=== PATIENT | female | born 1950 | race Caucasian/White ===

== ENCOUNTER 2016-09-12 09:26 | Observation (INO) | payer BC ==
[2016-09-12 10:37] LABS: Hematocrit 16 % (35-47); Mean Corpuscular HGB Conc 33 g/dl (31-36); Mean Corpuscular Hemoglobin 34 pg (27-31); Mean Corpuscular Volume 101 fL (80-97); Mean Platelet Volume 8 um3 (7.4-10.4); Red Blood Count 1.61 10^6/ul (4.0-5.4); Red Cell Distribution Width 24 % (10.5-15); White Blood Count 4.7 10^3/ul (3.5-10.8)
[2016-09-12 10:38] LABS: Comments Flag Yes
--- NOTE | 2016-09-12 10:39 | RAD ---
HISTORY: Shortness of breath, history of left pleural effusion COMPARISONS: August 30, 2016 VIEWS: 2: Frontal dual-energy and lateral views of the chest. FINDINGS: CARDIOMEDIASTINAL SILHOUETTE: The cardiomediastinal silhouette is normal. JENNIFER: The jennifer are normal. PLEURA: The costophrenic angles are sharp. No pleural abnormalities are noted. LUNG PARENCHYMA: There is large left pleural effusion. This is stable compared to August 30, 2016 ABDOMEN: There is associated compressive atelectasis of the left lung base BONES AND SOFT TISSUES: No bone or soft tissue abnormalities are noted. Surgical clips are noted in the left axilla OTHER: None. IMPRESSION: LEFT PLEURAL EFFUSION, STABLE FROM AUGUST 30, 2016
[2016-09-12 10:42] LABS: Add Diff/Slide Review? Slide Review Added; Hemoglobin 5.4 g/dl (12.0-16.0)
[2016-09-12 10:49] LABS: BUN/Creatinine Ratio 18.1 (8-20); C Reactive Protein 50.51 mg/L (< 5.00); Calcium 8.6 mg/dL (8.6-10.3); EGFR African American 104.9 (>60); EGFR Non-African American 81.6 (>60); Globulin 2.8 g/dL (2-4); Potassium 4.1 mmol/L (3.5-5.0); Total Bilirubin 0.9 mg/dL (0.2-1.0); Total Protein 5.8 g/dL (6.4-8.9)
[2016-09-12 10:51] LABS: Troponin I 0.01 ng/mL (<0.04)
[2016-09-12 11:00] LABS: Macrocytosis 1+; Microcytosis 1+
[2016-09-12 11:01] LABS: Hypochromasia 1+; Tear Drop Cells 1+
[2016-09-12] MEDS ORDERED: Acetaminophen TAB* 325 MG PO ONE (12:14)
[2016-09-12] MEDS ORDERED: diPHENhydraMINE PO* 25 MG PO ONE (12:14)
[2016-09-12] MEDS ORDERED: Acetaminophen TAB* 325 MG PO PRN (12:56)
[2016-09-12] MEDS ORDERED: Ondansetron INJ* 2 MG/ML VIAL IV PRN (12:56)
[2016-09-12] MEDS: SALMETEROL INH SCH ×2 (15:27→21:28)
[2016-09-12 16:41] LABS: Urine Bilirubin Negative (Negative); Urine Glucose Negative (Negative); Urine Nitrite Negative (Negative)
[2016-09-12 18:02] LABS: Hematocrit 25 % (35-47); Hemoglobin 8.3 g/dl (12.0-16.0)
[2016-09-12 18:23] LABS: Comments Flag Yes
--- NOTE | 2016-09-12 18:34 | ED ---
Sheri Quijano Auryana, scribed for Ha Watkins MD on 09/12/16 at 1003 . Shortness of Breath - HPI Summary HPI Summary: 66 year old female presents with increase SOB and fatigue worse since a week ago. She also reports epistaxis (1 episode a week ago), swelling of the left arm, and chest tightness - reports "band of pain" underneath bilateral breasts. She denies any fever, chills, and cough (reports cough with exertion but none now). She denies any neck pain, abdominal pain, diarrhea, or any constipation. PMHx is significant for metastatic breast cancer (Dr. Dinh - last chemotherapy treatment was 2 weeks ago with decreased dosage ad 2 units blood transfusion due to platelet count), anemia, pleural effusion - thoracocentesis ( 2.5 weeks ago). - History of Current Complaint Chief Complaint: EDShortnessOfBreath Time Seen by Provider: 09/12/16 09:50 Hx Obtained From: Patient Onset/Duration: Gradual Onset, Lasting Days - 7, Still Present Timing: Constant Current Severity: Mild Dyspnea At: Rest Associated Signs & Symptoms: Cough (Productive) - see HPI, Chest Pain Unrelated to Cough - chest tightness - see HPI, Edema - LUE - Allergy/Home Medications Allergies/Adverse Reactions: Allergies Allergy/AdvReac Type Severity Reaction Status Date / Time Capecitabine [From Xeloda] Allergy Intermediate SEE BELOW Verified 09/12/16 09: 31 Potassium Dichromate Allergy Intermediate Rash Verified 09/12/16 09:31 Alcohol [From Taxotere] Allergy Anaphylatic Verified 09/12/16 09:31 Shock Camphor [From BenGay Patch] Allergy See Comment Verified 09/12/16 09:31 Carboxymethylcellulose Allergy See Comment Verified 09/12/16 09:31 [From BenGay Patch] Docetaxel [From Taxotere] Allergy Anaphylatic Verified 09/12/16 09:31 Shock Ethanol [From Taxotere] Allergy Anaphylatic Verified 09/12/16 09:31 Shock Fluorouracil Allergy See Comment Verified 09/12/16 09:31 Menthol [From BenGay Patch] Allergy See Comment Verified 09/12/16 09:31 Methyl Salicylate Allergy See Comment Verified 09/12/16 09:31 [From BenGay Patch] Nickel Allergy Rash Verified 09/12/16 09:31 Sorbitan [From Taxotere] Allergy Anaphylatic Verified 09/12/16 09:31 Shock ezio perez Allergy Intermediate Rash Uncoded 09/12/16 09:31 sunscreen Allergy Intermediate Rash Uncoded 09/12/16 09:31 surgical tape Allergy Intermediate Rash/burn Uncoded 09/12/16 09:31 deoderant Allergy Mild Rash Uncoded 09/12/16 09:31 shoe dye Allergy Mild Rash Uncoded 09/12/16 09:31 yew bushes Allergy anaphylacti Uncoded 09/12/16 09:31 c PMH/Surg Hx/FS Hx/Imm Hx Endocrine/Hematology History: Reports: Hx Blood Disorders, Hx Diabetes - NO MEDS : TYPE 2, Hx Anemia - 05/28/2013 Denies: Hx Systemic Lupus Erythematosus Cardiovascular History: Reports: Hx Hypercholesterolemia Denies: Hx Congestive Heart Failure, Hx Hypertension, Hx Pacemaker/ICD Respiratory History: Reports: Hx Asthma - PT STATES ASTHMATIC RESPONSE TO RECENT CHEMO TREATMENT History: Denies: Hx Renal Disease Musculoskeletal History: Reports: Hx Arthritis - bilateral knees, Other Musculoskeletal History - ,HAD HIP REPLACED. MET. BREAST CA. Denies: Hx Rheumatoid Arthritis Sensory History: Reports: Hx Contacts or Glasses - GLASSES Denies: Hx Hearing Aid Opthamlomology History: Reports: Hx Contacts or Glasses - GLASSES Psychiatric History: Denies: Hx Panic Disorder - Cancer History Cancer Type, Location and Year: breast ca with bone mets Hx Chemotherapy: Yes - 11-14-15 Hx Radiation Therapy: Yes Hx Palliative Cancer Treatment: No - Surgical History Surgery Procedure, Year, and Place: WISDOM TEETH REMOVAL,1984 & 1986 X2,[facility] [place] TUBAL,LEFT MASTECTOMY 1998,LAPAROSCOPIC GALLBLADDER 2001;[facility] [place] HIP REPLACEMENT RIGHT 07/2012, [facility] SIDE PORT PLACEMENT 04/2014, right sided port placement 06/29 removed 05/02 Hx Anesthesia Reactions: Yes - EPIDURALS DOES NOT WORK Infectious Disease History: No Infectious Disease History: Denies: Traveled Outside the [place] in Last 30 Days - Family History Known Family History: Positive: Diabetes, Other - BREAST CA - Social History Occupation: Employed Full-time Lives: With Family Alcohol Use: None Substance Use Type: Reports: None Smoking Status (MU): Never Smoked Tobacco Review of Systems Constitutional: Negative Eyes: Negative Positive: Epistaxis - 1 episode 1 week ago Positive: Other - chest tightness - "band underneath breast" Positive: Shortness Of Breath, Cough - with exertion Gastrointestinal: Negative Genitourinary: Negative Musculoskeletal: Negative Skin: Negative Neurological: Negative Psychological: Normal All Other Systems Reviewed And Are Negative: Yes Physical Exam - Summary Physical Exam Summary: VITAL SIGNS: Reviewed. GENERAL: Patient is a well-developed and nourished female who is lying comfortable in the stretcher. Patient is not in any acute respiratory distress and is able to speak in full sentences. HEAD AND FACE: No signs of trauma. No ecchymosis, hematomas or skull depressions. No sinus tenderness. EYES: PERRLA, EOMI x 2, No injected conjunctiva, no nystagmus. EARS: Hearing grossly intact. Ear canals and tympanic membranes are within normal limits. MOUTH: Oropharynx within normal limits. NECK: Supple, trachea is midline, no adenopathy, no JVD, no carotid bruit, no c- spine tenderness, neck with full ROM. CHEST: Symmetric, no tenderness at palpation. Left mastectomy. LUNGS: Bilateral crackles in the bases. CVS: Regular rate and rhythm, S1 and S2 present, no murmurs or gallops appreciated. ABDOMEN: Soft, non-tender. No signs of distention. No rebound no guarding, and no masses palpated. Bowel sounds are normal. EXTREMITIES: FROM in all major joints, no cyanosis or clubbing. LUE swelling. NEURO: Alert and oriented x 3. No acute neurological deficits. Speech is normal and follows commands. SKIN: Dry and warm Triage Information Reviewed: Yes Vital Signs On Initial Exam: Initial Vitals Temp Pulse Resp BP Pulse Ox 98.1 F 106 18 128/59 97 09/12/16 09:29 09/12/16 09:29 09/12/16 09:29 09/12/16 09:29 09/12/16 09:29 Vital Signs Reviewed: Yes Diagnostics - Vital Signs Vital Signs Temp Pulse Resp BP Pulse Ox 09/12/16 09:29 98.1 F 106 18 128/59 97 - Laboratory Result Diagrams: 09/12/16 17:45 09/12/16 10:20 Lab Statement: Any lab studies that have been ordered have been reviewed, and results considered in the medical decision making process. - Radiology CXR Xray Interpretation: Positive (See Comments) - IMPRESSION: LEFT PLEURAL EFFUSION , STABLE FROM AUGUST 30, 2016 Radiology Interpretation Completed By: Radiologist - EKG 09:39 EKG Interpretation: sinus tachycardia @ [address] elevations Course/Dx - Course Course Of Treatment: 66 year old female presents with increase SOB and fatigue worse since a week ago. She also reports epistaxis (1 episode a week ago), swelling of the left arm, and chest tightness - reports "band of pain" underneath bilateral breasts. She denies any fever, chills, and cough (reports cough with exertion but none now). She denies any neck pain, abdominal pain, diarrhea, or any constipation. PMHx is significant for metastatic breast cancer (Dr. Dinh - last chemotherapy treatment was 2 weeks ago with decreased dosage ad 2 units blood transfusion due to platelet count), anemia, pleural effusion - thoracocentesis (2.5 weeks ago). Assessment/Plan: Test results show acute on chronic anemia, glucose 124, and CRP 50.51. CXR IMPRESSION: LEFT PLEURAL EFFUSION, STABLE FROM AUGUST 30, 2016. EKG: sinus tachycardia @ [address] elevations. Patient has history of anemia secondary to her breast cancer and chemo treatment. The patient denies any rectal bleed and no black stools. Therefore I ordered 2 units of RBC. The patient is still hemodynamically stable and A&O x3. I discussed the case with Dr. Gilmore who agrees to admit patient. Dx: SYMPTOMATIC ANEMIA, PLEURAL EFFUSION - Diagnoses Differential Diagnosis/HQI/PQRI: Positive: Bronchitis, CHF, Pneumonia Provider Diagnoses: Symptomatic anemia, Pleural effusion - Physician Notifications Discussed Care of Patient With: EVELYN LOPEZ Time Discussed With Above Provider: 10:47 - agrees to admit - Critical Care Time Critical Care Time: 30-74 min Discharge - Discharge Plan Condition: Stable Disposition: ADMITTED TO [facility] documentation as recorded by the Sheri burgos Auryana accurately reflects the service I personally performed and the decisions made by , aH Watkins MD.
--- NOTE | 2016-09-13 03:13 | HP ---
HISTORY AND PHYSICAL: DATE OF ADMISSION: 09/12/16 PRIMARY CARE PROVIDER: Srinivasa Espinoza MD PRIMARY ONCOLOGIST: Jesse Dinh MD ATTENDING PHYSICIAN WHILE IN THE HOSPITAL: Leslie Gilmore DO* (report being dictated by Naresh Porter NP) CHIEF COMPLAINT: 1. Shortness of breath. 2. Weakness. HISTORY OF PRESENT ILLNESS: Mrs. Black is a 66-year-old female patient who comes into the ER today with complaints stating that she has been feeling more short of breath and weakness particularly in the last couple of days. She has a history of malignant breast cancer with a history of metastases. She has been following closely with Dr. Dinh. She saw him last week. She had 2 thoracenteses here in August. The patient says that she got chemo about a week ago , but despite that the last couple of days more weak and more short of breath. She has not been feeling well. She denied any bleeding. She did have just 1 bloody nose, but no tarry stools. No vomiting or abdominal discomfort. She denied any chest pain. She has been feeling weak. She came into the ER, was evaluated, and it was noted that her hemoglobin was 5.4 and her hematocrit was 16. The patient, because of these findings and the fact that also was noted on her chest x-ray that the pleural effusion was much larger. Hospitalist service was asked to evaluate for admission. PAST MEDICAL HISTORY: Significant for: 1. Breast cancer with malignancy. 2. Asthma. 3. Diabetes, which is diet controlled. 4. Hyperlipidemia. 5. Neuropathy. 6. Lymphedema. PAST SURGICAL HISTORY: 1. She has had a port placement. She has had a mastectomy. She has had a C- section x2. 2. Laparoscopic cholecystectomy. 3. Total hip arthroplasty. HOME MEDICATIONS: According to her recall includes: 1. Lipoic acid 600 mg p.o. t.i.d. 2. Serevent 1 puff inhaled b.i.d. as needed. 3. Fish oil 1 capsule p.o. daily. 4. Synthroid 100 mcg daily. ALLERGIES TO MEDICATIONS: Include: 1. XELODA. 2. TAXOTERE. 3. BENGAY. 4. 5-FU. 5. NICKEL. 6. SUNSCREEN. 7. SURGICAL TAPE. 8. DEODORANT. 9. SHOE DYE. 10. YEW BUSHES. FAMILY HISTORY: Her mother had a history of diabetes. Father had a history of MVA. SOCIAL HISTORY: She does not smoke. She does not drink. Surrogate decision maker is her . REVIEW OF SYSTEMS: There is no documented fever. She denied having any significant weight change. There was no double vision. Denies having any ear discharge. There is no rhinorrhea. No sore throat. No thyroid enlargement. Denies having any chest pain. There was orthopnea. There was no nocturnal dyspnea. There was no abdominal pain. There was no nausea. No vomiting. No dysuria. No frequency. There was no seizure. There was no loss of consciousness. No pruritus. No skin ulceration. Review of 14 systems completed and all others negative. PHYSICAL EXAMINATION GENERAL: At this time, Mrs. Black is a 66-year-old female patient. She appears to be well nourished, well developed. She does not appear to be in any acute distress. VITAL SIGNS: Reveals blood pressure 117/55, the pulse is 96, respirations 18, O2 sat 93%, and her temperature was 98.1. HEENT: Head is atraumatic and normocephalic. Eyes: EOMs are intact. Sclerae anicteric and not pale. NECK: Supple. Throat: Oral mucosa appears to be moist. No oropharyngeal erythema. LUNGS: Clear to auscultation. No wheezes, rales, or rhonchi. She is diminished on the left side. HEART: Sounds S1 and S2. Regular rate and rhythm. No murmurs, rubs, or gallops. ABDOMEN: Soft, flat, and nontender. Bowel sounds present. EXTREMITIES: Pulses were 2+ throughout. She is able to move all 4 extremities with 5/5 strength. NEUROLOGIC: She is awake, alert, and oriented x3. Tongue midline. Computer Technology Trainer were equal. No gross focal deficits. SKIN: Grossly intact. DIAGNOSTIC STUDIES/LAB DATA: Today revealed a WBC of 4.7, RBC of 1.61, hemoglobin of 5.4, hematocrit of 16, and platelet count of 89. Sodium is 135, potassium 4.1, chloride of 101, bicarb 25, BUN 13, creatinine 0.72, glucose 124 , lactic 1.8, and calcium 8.6. Total bili 0.9, AST 60, ALT 24, and alk phos 421. CK 1.6. Troponin 0.01. CRP of 50. Albumin of 3.0. She did have a chest x-ray obtained today, which on my review; she did have a significant left-sided pleural effusion, which was consistent with her x-ray in May 2014. She did have an EKG obtained today. She did not have any previous EKGs for comparison, but the EKG today did show a sinus tachycardia at a rate of 100. No ST elevations or T-wave inversions were noted. She may have some subtle depressions in lead II and III. Old medical records were reviewed. ASSESSMENT AND PLAN: Mrs. Black is a 66-year-old female patient coming into the ER today with complaints of weakness and shortness of breath, not feeling well, and found to have a hemoglobin of 5.4 and found to have a left-sided pleural effusion which is chronic. She will be admitted under observation status for: 1. Symptomatic anemia: At this point, I will go ahead and give her 2 units of packed cells. We will repeat the H and H an hour afterwards and if we need to, we will transfuse another one. In addition to this, we will go ahead and check a CBC in the morning and suspect this is probably suppression from the recent chemo. 2. Pleural effusion: I did touch pace with Dr. Erazo who again knows the patient and she is an oncology patient. The plan will be to go ahead and consult Surgery for maybe a pleural catheter because she is requiring and this will be her third need for thoracentesis within a month, so she might need a more permanent situation to drain this effusion. 3. Breast cancer: I will defer the management to Dr. Dinh and his team. 4. Asthma: Continue meds as prescribed. 5. Diabetes: She will be on a regular diet and we will just check her fingersticks daily. 6. Hyperlipidemia: Continue with her current medical regimen. 7. Neuropathy: Continue the current medical regimen. 8. Code status: Full code. 9. Fluids, electrolytes, and nutrition: She can have a regular diet. 10. DVTs prophylaxis. Because of the low H and H and the fact that her platelets were 89,000, I am going to hold off on heparin for the first 24 hours and go ahead and put her on SCDs. TIME SPENT: Time spent on the admission was 60 minutes; greater than half the time was spent [id number] with the patient obtaining my history and physical, the other half time is spent going over the plan of care with the patient and implementing plan of care. I discussed the plan of care with my attending, Dr. Gilmore. She is in agreement. NARESH PORTER NP CC: Dr. Dinh; Dr. Espinoza* [id number]/[facility]PS #: [id number] MTDD
[2016-09-13] MEDS ORDERED: Levothyroxine TAB* 100 MCG TAB PO SCH (06:00)
[2016-09-13 06:33] LABS: Hematocrit 23 % (35-47); Hemoglobin 7.9 g/dl (12.0-16.0); Mean Corpuscular HGB Conc 34 g/dl (31-36); Mean Corpuscular Hemoglobin 31 pg (27-31); Mean Corpuscular Volume 93 fL (80-97); Mean Platelet Volume 8 um3 (7.4-10.4); Red Blood Count 2.51 10^6/ul (4.0-5.4); Red Cell Distribution Width 23 % (10.5-15); White Blood Count 4.5 10^3/ul (3.5-10.8)
[2016-09-13 06:37] LABS: Comments Flag Yes
[2016-09-13 06:38] LABS: Add Diff/Slide Review? Slide Review Added
[2016-09-13 06:43] LABS: BUN/Creatinine Ratio 17.3 (8-20); Calcium 8.3 mg/dL (8.6-10.3); EGFR African American 100.1 (>60); EGFR Non-African American 77.8 (>60); Potassium 4.1 mmol/L (3.5-5.0)
[2016-09-13 07:04] LABS: Immature Granulocytes 9 % (0-9); Metamyelocytes % 1 % (0-2); Myelocytes % 1 % (0-1); Neutrophil % 65 % (38-83)
[2016-09-13 07:05] LABS: Hypochromasia 2+; Polychromasia 1+
[2016-09-13 07:06] LABS: Add Path Review? YES
[2016-09-13 07:35] VITALS: BP 125/65
[2016-09-13] MEDS: SALMETEROL INH SCH (09:06)
--- NOTE | 2016-09-13 10:13 | PN ---
Progress Note - Progress Note SOAP: Subjective: []Feels better today after blood. Still SOB with any movement. Had felt better when fluid drained a few weeks ago. No fevers and not in pain. Chemotherapy planned for this Tuesday. Acetaminophen (Tylenol Tab*) 650 mg PO Q4H PRN PRN Reason: FEVER/PAIN Heparin Sodium (Porcine) (Heparin Flush Port (Ivad)) 5 ml FLUSH DAILY KAUR PRN Reason: Protocol Last Admin: 09/13/16 07:51 Dose: Not Given Heparin Sodium (Porcine) (Heparin Flush Port (Ivad)) 5 ml FLUSH DAILY PRN; Protocol PRN Reason: PER INFUSAPORT PROTOCOL Last Admin: 09/13/16 06:02 Dose: 5 ml Levothyroxine Sodium (Synthroid Tab*) 100 mcg PO 0600 [facility] Last Admin: 09/13/16 05:57 Dose: 100 mcg Ondansetron HCl (Zofran Inj*) 4 mg IV Q6H PRN PRN Reason: NAUSEA Salmeterol Xinafoate (Serevent Diskus (Nf)) 1 puff INH BID KAUR PRN Reason: Protocol Last Admin: 09/13/16 09:06 Dose: 1 puff Objective: [] Vital Signs Temp Pulse Resp BP Pulse Ox 98.1 F 94 17 125/65 97 09/13/16 07:30 09/13/16 07:30 09/13/16 07:30 09/13/16 07:30 09/13/16 07:30 HEENT - pale, no oral lesions Decreased BS on left, CTA on right RRR S1S2 +BS, NT/ND, no masses No JOSÉ MIGUEL, ext warm to touch Neuro AAAOx3 Assessment: []66 year old metastatic breast cancer now approaching cycle 3 of Carbo, trastuzumab and pertuzumab with recurrent pleural effusion and anemia. Breathing better but not great after blood transfusion. Plan: []1. Discussed management of fluid at length. Options are recurrent drainage or Pleurex catheter. Given nature of recurrent fluid near cycle 3 of current regimen, I suspect it will be recurrent issue. She is due for CT scans after cycle 3 and is inclined to continue US guided drainage pending those scan results. Will plan on DC today and arrange for repeat drainage later this week. 2. Anemia. Improved past PRBC. 3. Plan chemotherapy on Tuesday
--- NOTE | 2016-09-13 10:29 | CONS ---
CC: [facility]; Jesse Dinh MD. CONSULTATION REPORT: DATE OF CONSULTATION: 09/13/16. REFERRING PROVIDER: Leslie Gilmore DO. REASON FOR CONSULTATION: Recurrent left malignant pleural effusion. HISTORY OF PRESENT ILLNESS: Ms. Michelle Black is a 66-year-old woman with known metastatic left-sided b reast cancer who is under the care of Dr. Jesse Dinh. She has been undergoing treatment for the l ast several years; we have decided to change in her chemotherapy regimen, which she receives through a left chest wall PowerPort. Over the past 2 months she has had development of a left pleural effusion. This has undergone 3 sep arate thoracenteses with Dr. Barahona. Cytology has shown this to be consistent with a primary breast cancer with metastatic adenocarcinoma consistent with her diagnosis. She has also had some difficulty with anemia and has received blood transfusion in the recent past. She presented to the Emergency Room yesterday with worsening chest pain and weakness. She has noted to have a hemoglobin of a little over 5 and also a chest x-ray, which showed the large left pleura l effusion, which is about the same size as the last chest x-ray done in mid August. She was admitted for blood transfusion, which she received yesterday and a surgical consultation for discussion and an opinion regarding placement of possible PleurX catheter. PAST MEDICAL HISTORY: 1. Metastatic breast cancer. 2. Asthma. 3. Diabetes. 4. Hyperlipidemia. 5. Neuropathy. 6. Lymphedema. PAST SURGICAL HISTORY: 1. Left-sided chest port placement. 2. Left mastectomy. 3. section. 4. Cholecystectomy. 5. Hip arthroplasty. MEDICATIONS: 1. Serevent 1 puff b.i.d. 2. Fish oil. 3. Synthroid. 4. Lipoic acid. ALLERGIES: XELODA, TAXOTERE, BENGAY, 5-FU, NICKEL, SUNSCREEN, TAPE, DEODORANT, SHOE DYE, YEW BUSHES . SOCIAL HISTORY: She does not smoke. She is . Does not drink. She has 2 grown children. H er surrogate decision maker is her . She lives in [place]. REVIEW OF SYSTEMS: Otherwise unremarkable. She has had no significant weight loss. There has been no chest pain. She does have some shortness of breath on exertion, but she has had no hemoptysis. GI: Unremarkable. : Unremarkable. PHYSICAL EXAMINATION: Vital Signs: Temperature 98.1, pulse 94, blood pressure 125/65, respirations 17, room air saturation is 97%. General: She is well- developed slightly pale-appearing woman, ap pears to be in no apparent distress. She is awake, alert, and very pleasant. She has a left-sided c hest port placement. She has decreased breath sounds on the left mid and lower base area. There is no rhonchi or wheezing. The right chest is clear. Heart has regular rate and rhythm. Her abdomen i s soft, nondistended. No tenderness, rebound or guarding. IMAGING DATA: I did review the chest x-rays from the past several months. She seems to have a pers istent but stable left pleural effusion compared to the study done in mid August when there also was a thoracentesis done. IMPRESSION: Recurrent metastatic left pleural effusion. She has been having increasing difficulty with shortness of breath and weakness and this is due to both the anemia as well as the effusion. S he feels better after blood transfusions. RECOMMENDATION: We discussed option of PleurX catheter, which certainly could be inserted during is admission or at any other time, which is convenient and appropriate for her. We discussed the pl acement of a catheter and its benefits and alternatives and the fact that she could continue as well with serial thoracenteses as well. Today before proceeding in this direction she would like to talk with Dr. Dinh her oncologist, Dr. Erazo. I also discussed with Dr. Erazo today who is an precision instrument maker for oncology, and obviously this is no t an emergent procedure and could be done anytime after she makes her decision. [id number]/[facility] #: [id number]
--- NOTE | 2016-09-13 14:45 | DS ---
CC: Jesse Dinh MD DISCHARGE SUMMARY: ADDENDUM: History and physical, discharge OBV. DIAGNOSES: 1. Chemotherapy-induced anemia. 2. Pleural effusion secondary to breast cancer. HOSPITAL COURSE: Please see history and physical from yesterday for admission. She came in [facility] and received 2 units of packed red blood cells. She feels better this morning and breathing is ac ceptable. She continues to have A left- sided effusion. Extensive discussion today about drainage of the fluid, placement of a PleurX catheter. She has chemotherapy due on Tuesday and will probably have an ultrasound-guided drainage later this week. Would consider PleurX pending results of CT sca ns after next cycle of chemotherapy. Plan will be to discharge home today and then follow up with Shaheen Dinh during the week. DISCHARGE MEDICATIONS: Unchanged from admission: 1. Levothyroxine 100 mcg daily. 2. Salmeterol Diskus 1 puff b.i.d. 3. [place]-3 fatty acids daily. FOLLOWUP: Followup will be next week with Dr. Dinh and we will make definitive plans for managing the effusion. [id number]/[facility] #: [id number]
== END 2016-09-13 12:00 | disposition home or self-care (01) ==
LOC: ED 09:26 → SSU 12:54
PROVIDERS: ADMIT Hospitalist; ATTEND Internal Medicine Hematology & Oncology
DX: D64.81 Anemia due to antineoplastic chemotherapy (principal); R06.02 Shortness of breath; R53.1 Weakness; C50.919 Malignant neoplasm of unspecified site of unspecified female breast; C79.9 Secondary malignant neoplasm of unspecified site; J45.909 Unspecified asthma, uncomplicated; E11.9 Type 2 diabetes mellitus without complications; E78.5 Hyperlipidemia, unspecified; G62.9 Polyneuropathy, unspecified; I89.0 Lymphedema, not elsewhere classified; R00.0 Tachycardia, unspecified; J90 Pleural effusion, not elsewhere classified; Z79.899 Other long term (current) drug therapy; Z88.8 Allergy status to other drugs, medicaments and biological substances
CPT/HCPCS: 36415; 71020; 80048; 80053; 81003; 82550; 82553; 83605; 83880; 84484; 85014; 85018; 85025; 85060; 85610; 86140; 86850; 86900; 86901; 86922; 87040; 93005; 99217; 99291; A9270-GY; G0378; J1642; P9040

== ENCOUNTER 2016-09-30 08:54 | Inpatient (IN) | payer BC ==
[~2016-09-30 08:54] MED LIST: Buffered Lidocaine 0.9% SYRIN* 5 ML/SYR SYRINGE INTRADERM ONE; Buffered Lidocaine 0.9% SYRIN* 5 ML/SYR SYRINGE ONE; Dexamethasone TAB* 4 MG ONE; Dexamethasone TAB* 4 MG PO ONE; Famotidine IV* 10 MG/ML 2 ML (20 mg) IV ONE; Famotidine IV* 10 MG/ML 2 ML (20 mg) ONE; Morphine INJ* 2 MG/ML 1 ML SYRINGE IV PRN; PROCHLORPERAZINE INJ 5 MG/ML 2 ML VIAL IV PRN; Scopolamine 1.5 mg* PATCH ONE; Scopolamine 1.5 mg* PATCH TRANSDERM ONE; ceFAZolin 2 GM PREMIX(*) 2 GM/50 ML BAG IVPB ONE; fentaNYL* 50 MCG/ML 2 ML VIAL (100 MCG VIAL) IV PRN; oxyCODONE/Acetamin 5/325 MG* TAB PO PRN
[2016-09-30] MEDS ORDERED: KETAMINE HCL* 50 MG/ML 10 ML VIAL ONE (09:41)
[2016-09-30] MEDS ORDERED: Midazolam* 1 MG/ML 5 ML VIAL (5 MG) ONE (09:41)
[2016-09-30] MEDS ORDERED: Atracurium* 10 MG/ML 10 ML VIAL ONE (09:41)
[2016-09-30] MEDS ORDERED: fentaNYL* 50 MCG/ML 2 ML VIAL (100 MCG VIAL) ONE ×2 (09:41→12:04)
[2016-09-30] MEDS ORDERED: Bupivacaine 0.25% W/EPI* 50 ML VIAL ONE (10:46)
[2016-09-30] MEDS ORDERED: Ondansetron INJ* 2 MG/ML VIAL ONE (12:13)
[2016-09-30] MEDS ORDERED: Glycopyrrolate IV* 0.2 MG/ML 1 ML VIAL ONE (12:13)
[2016-09-30] MEDS ORDERED: Neostigmine Methylsulfate* 2 MG/2 ML SYRINGE ONE (12:13)
[2016-09-30] MEDS ORDERED: Phenylephrine INJ* 10 MG/ML 1 ML VIAL (10 MG) ONE (12:13)
[2016-09-30] MEDS ORDERED: Propofol* 10 MG/ML 20 ML BTL IV PUSH ONE (12:13)
[2016-09-30] MEDS ORDERED: PROCHLORPERAZINE INJ 5 MG/ML 2 ML VIAL ONE (12:13)
[2016-09-30] MEDS ORDERED: Lidocaine 2% PF * 5 ML VIAL ONE ×2 (12:13→14:06)
[2016-09-30] MEDS ORDERED: Morphine INJ* 10 MG/ML 1 ML SYRINGE ONE (13:12)
[2016-09-30] MEDS ORDERED: Ondansetron INJ* 2 MG/ML VIAL IV PRN (13:55)
[2016-09-30] MEDS ORDERED: oxyCODONE/Acetamin 5/325 MG* TAB PO PRN (13:55)
[2016-09-30] MEDS ORDERED: HYDROmorphone* 1 MG/ML 1 ML SYR IV PRN (13:55)
[2016-09-30 14:47] LABS: Hematocrit 26 % (35-47); Hemoglobin 8.5 g/dl (12.0-16.0); Mean Corpuscular HGB Conc 33 g/dl (31-36); Mean Corpuscular Hemoglobin 30 pg (27-31); Mean Corpuscular Volume 91 fL (80-97); Mean Platelet Volume 9 um3 (7.4-10.4); Red Blood Count 2.84 10^6/ul (4.0-5.4); Red Cell Distribution Width 15 % (10.5-15); White Blood Count 6.8 10^3/ul (3.5-10.8)
[2016-09-30 14:49] LABS: Add Diff/Slide Review? Slide Review Added; Comments Flag Yes
--- NOTE | 2016-09-30 15:04 | RAD ---
HISTORY: Postop COMPARISONS: September 23, 2016 VIEWS:1: Single frontal portable view of the chest at 2:37 PM FINDINGS: LINES AND TUBES: A left-sided chest port is noted from a left internal jugular approach with the tip overlying the cavoatrial junction. A left-sided chest tube is noted. CARDIOMEDIASTINAL SILHOUETTE: The cardiomediastinal silhouette is normal for portable technique. PLEURA: The costophrenic angles are sharp. No pleural abnormalities are noted. LUNG PARENCHYMA: There is confluent alveolar opacification throughout the left lung field. There is patchy alveolar opacification of the right midlung field.. ABDOMEN: The upper abdomen is clear. There is no subphrenic gas. BONES AND SOFT TISSUES: Surgical clips are noted in the left axilla IMPRESSION: 1. LINES AND TUBES ABOVE. 2. DIFFUSE LEFT LUNG CONSOLIDATION WITH PATCHY ATELECTASIS VERSUS CONSOLIDATION OF THE RIGHT MIDLUNG
[2016-09-30 15:12] LABS: Immature Granulocytes 10 % (0-9); Metamyelocytes % 2 % (0-2); Neutrophil % 85 % (38-83)
[2016-09-30 15:13] LABS: Hypochromasia 2+; Polychromasia 1+
[2016-09-30 15:14] LABS: Microcytosis 1+
[2016-09-30] MEDS ORDERED: Salmeterol DISKUS (NF) INH SCH (21:00)
[2016-09-30] MEDS: Docusate CAP* 100 MG PO SCH (21:42)
--- NOTE | 2016-09-30 23:47 | OP ---
CC: Jesse Dinh MD * DATE OF OPERATION: 09/30/16 - ROOM #333 DATE OF : 54 SURGEON: Que Pierson MD CARDIOVASCULAR RADIOLOGIC TECHNOLOGIST: Soila Wheat NP ANESTHESIOLOGIST: Dr. Eric. ANESTHESIA: General anesthetic, local infiltration by the surgeon. 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 OPERATIVE PROCEDURES: Left videothoracoscopy, evacuation of bloody pleural effusion, partial pleural decortication, and mechanical pleurodesis. DESCRIPTION OF PROCEDURE: The patient was supine on the operative table. After adequate general anesthetic, compression stockings, Conrado Hugger warmer, intravenous antibiotics, she was given a double lumen intubation and fiberoptic bronchoscopy was carried out and confirmed appropriate position of the endotracheal tube. She was placed then in the lateral decubitus position with everything appropriately padded and positioned and secured to the table. The left chest was entered in approximately the eight interspace laterally and there was a large quantity of bloody pleural fluid forthcoming upon inspection with the scope. There were multiple areas of clot and adhesions and some septations. These were broken down. Additional fluid was drained. The pleural surface seemed to be oozy and bloody a little bit on its own. The upper lobe does not seem to expand perfectly well and there was a peel on the surface. This was taken off and it was relatively thin. Some of the clot and peel on fibrinous material was sent as the specimen as was the pleural fluid. The raw surface of the longus also kind of oozing. Irrigation and suctioning was carried out and mechanical pleurodesis was carried out using a piece of Marlex . Ultimately, a 36-[place] chest tube was placed through the larger incision. The two 5 mm incisions are closed with 5-0 Vicryl. The larger incision uses 2- 0 Prolene to help close the incisions and secure the chest tube. The chest tube was hooked to the Pleur-evac, gauze dressings were placed. She was brought to Recovery in stable condition. The drain is 36-[place] chest tube. Sponge and instrument counts correct. Estimated blood loss was about 1000 mL in addition to about 2 L worth of pleural fluid. She did receive 3 units of packed cells during the OR and 2 L of saline. [id number]/[facility] #: [id number] [facility]
[2016-10-01] MEDS ORDERED: NS 0.9% 1000 ML* 1,000 ML IV ONE ×2 (03:45→07:35)
[2016-10-01] MEDS: Levothyroxine TAB* 100 MCG TAB PO SCH (05:54)
[2016-10-01 05:59] LABS: Hematocrit 21 % (35-47); Hemoglobin 7.1 g/dl (12.0-16.0); Mean Corpuscular HGB Conc 34 g/dl (31-36); Mean Corpuscular Hemoglobin 30 pg (27-31); Mean Corpuscular Volume 91 fL (80-97); Mean Platelet Volume 9 um3 (7.4-10.4); Red Blood Count 2.34 10^6/ul (4.0-5.4); Red Cell Distribution Width 15 % (10.5-15); White Blood Count 8.2 10^3/ul (3.5-10.8)
[2016-10-01 06:01] LABS: Add Diff/Slide Review? Slide Review Added; Comments Flag Yes
[2016-10-01 06:03] LABS: BUN/Creatinine Ratio 31.1 (8-20); Calcium 7.3 mg/dL (8.6-10.3); EGFR African American 69.4 (>60); EGFR Non-African American 53.9 (>60); Potassium 5.1 mmol/L (3.5-5.0)
--- NOTE | 2016-10-01 08:32 | RAD ---
INDICATION: Postoperative study, left-sided chest tube. COMPARISON: Comparison is made with prior studies from September 23, 2016 and September 30, 2016. TECHNIQUE: A portable view of the chest was obtained. FINDINGS: The heart is within normal limits in size. There is a central venous catheter present on the left side. The catheter tip projects in the right paratracheal region. There is a left-sided chest tube. There is a patchy infiltrate in the left lung which appears improved from the prior exam. There is suggestion of a small left pleural effusion which is decreased. No pneumothorax is seen. There is a small amount of subcutaneous emphysema. IMPRESSION: INTERVAL DECREASE IN SIZE OF THE LEFT LUNG INFILTRATE AND PLEURAL EFFUSION.
[2016-10-01] MEDS: Docusate CAP* 100 MG PO SCH ×2 (08:36→20:52)
[2016-10-01] MEDS: SALMETEROL INH SCH ×2 (08:36→20:52)
--- NOTE | 2016-10-01 12:03 | PN ---
Progress Note - Progress Note SOAP: Subjective: []Post Op Day 1, s/p VATs with mechanical pleurodesis, chest tube in place. Feeling OK. Was very anxious going into surgery but thinks it will be good, "actually feel better about it now then I did then!" No severe pain and breathing easily. Denies questions to this credit underwriter. Left arm swollen, long standing but worse over last 2 months per report. Medications: Acetaminophen (Tylenol Tab*) 650 mg PO Q4H PRN PRN Reason: Pain Or Temperature >101 F Docusate Sodium (Colace Cap*) 100 mg PO BID [facility] Last Admin: 10/01/16 08:36 Dose: 100 mg Hydromorphone HCl (Dilaudid Iv*) 0.5 mg IV Q1H PRN PRN Reason: PAIN - SEVERE Lactated Ringer's (Lactated Ringers 1000 Ml Bag*) 1,000 mls @ 150 mls/hr IV .per rate [facility] Last Admin: 09/30/16 23:38 Dose: 150 mls/hr Levothyroxine Sodium (Synthroid Tab*) 100 mcg PO 0600 [facility] Last Admin: 10/01/16 05:54 Dose: 100 mcg Ondansetron HCl (Zofran Inj*) 4 mg IV Q4H PRN PRN Reason: NAUSEA/VOMITING Oxycodone/Acetaminophen (Percocet 5/325 Tab*) 1 tab PO Q4H PRN PRN Reason: PAIN Pharmacy Profile Note (Scopolomine Patch Remove*) 1 note PATCH OFF ONCE ONE Stop: 10/03/16 06:01 Salmeterol Xinafoate (Serevent Diskus (Nf)) 1 puff INH BID [facility] PRN Reason: Protocol Last Admin: 10/01/16 08:36 Dose: 1 puff Objective: [] Vital Signs Temp Pulse Resp BP Pulse Ox 97.9 F 69 16 126/61 97 10/01/16 03:54 10/01/16 03:54 10/01/16 03:54 10/01/16 03:54 10/01/16 09:50 A&Ox3, neuro grossly non-focal HRR, no murmur noted LS R clear L dim. with faint crackles Barrera draining clear urine Chest tube benign, dressing in place, draining sanginous fluid, +air leak Laboratory Results - last 24 hr 09/30/16 10/01/16 10/01/16 14:36 05:24 05:24 WBC 6.8 8.2 RBC 2.84 L 2.34 L Hgb 8.5 L 7.1 L Hct 26 L 21 L MCV 91 91 MCH 30 30 MCHC 33 34 RDW 15 15 Plt Count 58 L 53 L MPV 9 9 Immature Gran % (Auto) 10 H Neut % (Auto) 85.9 H 85.0 H Lymph % (Auto) 7.8 L 4.7 L [place] % (Auto) 5.2 10.0 H Eos % (Auto) 0.4 0.1 Baso % (Auto) 0.7 0.2 Absolute Neuts (auto) 5.8 7.0 Absolute Lymphs (auto) 0.5 L 0.4 L Absolute Monos (auto) 0.4 0.8 Absolute Eos (auto) 0 0 Absolute Basos (auto) 0 0 Absolute Nucleated RBC 0.09 0.07 Neutrophils % 85 H Band Neutrophils % 8 Lymphocytes % 2 L Monocytes % 3 Metamyelocytes % 2 Nucleated RBC % 1.3 0.8 Nucleated RBCs/100 WBC 8 H Normal RBC Morphology Not Reportable Polychromasia 1+ Hypochromasia 2+ Microcytosis 1+ Sodium 131 L Potassium 5.1 H Chloride 101 Carbon Dioxide 21 L Anion Gap 9 BUN 32 H Creatinine 1.03 H Est GFR ( Amer) 69.4 Est GFR (Non-Af Amer) 53.9 BUN/Creatinine Ratio 31.1 H Glucose 175 H Calcium 7.3 L Assessment: []66 yo f with metastatic breast cancer now s/p VATs for malignant pleural effusion on Left, chest tube in place and overall appearing to recover well. Left arm swelling seems out of proportion to lymphedema, may be dependent r/t effusion, however with progressive component I would like to evaluate for a clot. Plan: []1. Venous doppler Left upper extremity: eval. for clot vs. lymphedema - discussed with surgery and no issues with chest tube. Plan of care otherwise per surgery, oncology will cont. to follow
[2016-10-01] MEDS ORDERED: Furosemide IV* 10 MG/ML 2 ML VIAL (20 MG) IV ONE (13:36)
--- NOTE | 2016-10-01 13:50 | PN ---
Progress Note - Progress Note Note: Surgery Progress: (patient seen and examined this a.m. by Dr. Pierson; I saw the patient around 0930) S: POD #1. Pain is manageable (has used any analgesics), though has not been very mobile as yet. Denies sig SOB. Reportedly had quite a bit of drainage to the dressing around the chest tube. Fluid bolus ordered for low UOP. O: Vital Signs - 8 hr 10/01/16 10/01/16 10/01/16 07:39 08:00 09:50 Temperature 98.3 F Pulse Rate 87 Respiratory 15 16 Rate Blood Pressure 104/62 (mmHg) O2 Sat by Pulse 100 100 97 Oximetry 10/01/16 11:43 Temperature 98.0 F Pulse Rate 90 Respiratory 17 Rate Blood Pressure 112/54 (mmHg) O2 Sat by Pulse 100 Oximetry Intake and Output Last 24 Hours 09/29/16 09/30/16 10/01/16 10/02/16 06:59 06:59 06:59 06:59 Intake Total 6239 Output Total 1515 Balance 4724 Weight 180 lb 180 lb Intake: IV Fluids 5509 BLOOD 960 LR 3554 NS (0.9%) 995 Oral 730 Output: Chest Tube #1 140 Barrera 375 Estimated Blood Loss 1000 Other: # Bowel Movements 0 Gen: NAD Heart: reg Lungs: clear on the R and upper higgins on L. CT: level at ~ 750cc; moderately sanguinous drain (serosang). Appears to be a small airleak at the pleurevac. RIVERA Noonan will change dressings and check connections. Labs: Laboratory Tests 09/30/16 10/01/16 10/01/16 14:36 05:24 05:24 Hgb 8.5 L 7.1 L Potassium 5.1 H A/P: s/p L VATS w/ decortication and mechanical pleuradesis, with significant intraop blood loss; overall, doing well. Labs to be rechecked in a.m. Patient understands she may need add'l transfusion. I also spoke w/ COMPUTER PROCESSING SCHEDULER Blanca who will be ordering a venous duplex of the Left UE r/t increased swelling. Continue chest tube drainage. Should be ok to be off suction for short periods. Poss d/c Barrera later today if able to mobilize.
--- NOTE | 2016-10-01 14:04 | RAD ---
Indication: Left upper extremity edema. Real-time sonography of the right upper extremity deep venous system was performed. Echogenic material is noted in the right internal jugular vein consistent with partial thrombus. This is in similar extent to that seen on December 01, 2015. The actual clot appears to be retracted relative to the prior exam. The left subclavian vein, right axillary vein and brachial vein are patent. The basilic vein, cephalic vein, radial vein and ulnar vein are patent and compressible. IMPRESSION: Nonocclusive thrombus involving the right internal jugular vein to a similar extent seen on previous exam of December 01, 2015 although the thrombus appears to be smaller. No evidence of deep venous thrombosis of left upper extremity is noted.
[2016-10-01] MEDS: NS 0.9% 1000 ML* 1,000 ML IV SCH (17:13)
[2016-10-01] MEDS ORDERED: NS 0.9% 1000 ML* 1,000 ML IV PRN (23:00)
[2016-10-02] MEDS: NS 0.9% 1000 ML* 1,000 ML IV SCH ×2 (02:24→23:45)
[2016-10-02] MEDS: Levothyroxine TAB* 100 MCG TAB PO SCH (05:31)
[2016-10-02 08:34] LABS: Hematocrit 17 % (35-47); Mean Corpuscular HGB Conc 34 g/dl (31-36); Mean Corpuscular Hemoglobin 31 pg (27-31); Mean Corpuscular Volume 91 fL (80-97); Mean Platelet Volume 9 um3 (7.4-10.4); Red Blood Count 1.84 10^6/ul (4.0-5.4); Red Cell Distribution Width 16 % (10.5-15)
[2016-10-02] MEDS: Docusate CAP* 100 MG PO SCH ×2 (08:45→21:16)
[2016-10-02 08:46] LABS: BUN/Creatinine Ratio 34.5 (8-20); Calcium 7.4 mg/dL (8.6-10.3); EGFR African American 87.8 (>60); EGFR Non-African American 68.3 (>60); Potassium 4.1 mmol/L (3.5-5.0)
[2016-10-02] MEDS: SALMETEROL INH SCH ×2 (08:46→21:16)
[2016-10-02 08:53] LABS: Comments Flag Yes
[2016-10-02 08:54] LABS: Hemoglobin 5.7 g/dl (12.0-16.0)
[2016-10-02 08:55] LABS: Add Diff/Slide Review? Slide Review Added
--- NOTE | 2016-10-02 09:31 | RAD ---
INDICATION: Postoperative chest x-ray status post left-sided pleurodesis. COMPARISON: Chest x-ray dated October 01, 2016 TECHNIQUE: PA and lateral views of the chest were obtained. FINDINGS: Stable iatrogenic findings relative to the most recent chest x-ray include a left internal jugular vein Mediport with the tip terminating in the cavoatrial junction and a left-sided chest tube overlying the lateral aspect of the left lung. There is persistent density obscuring the left lung base and left hemidiaphragm but aeration of the left lung appears to be slightly improved from the previous days chest x-ray. Aside from linear density at the mid-level right lateral lung, the right lung is adequately aerated. IMPRESSION: THERE HAS BEEN SMALL INTERVAL IMPROVEMENT IN THE DEGREE OF LEFT LUNG AERATION WITH AN APPROPRIATELY POSITIONED LEFT-SIDED CHEST TUBE DESCRIBED ABOVE.
[2016-10-02 10:04] LABS: Immature Granulocytes 9 % (0-9); Myelocytes % 1 % (0-1); Neutrophil % 78 % (38-83)
[2016-10-02 10:05] LABS: Polychromasia 1+
[2016-10-02] MEDS ORDERED: Furosemide IV* 10 MG/ML 2 ML VIAL (20 MG) IV ONE (15:50)
[2016-10-02] MEDS ORDERED: Furosemide IV* 10 MG/ML 2 ML VIAL (20 MG) ONE (16:05)
[2016-10-03 00:19] LABS: Mean Platelet Volume 8 um3 (7.4-10.4)
[2016-10-03 00:21] LABS: Comments Flag Yes
[2016-10-03] MEDS: Levothyroxine TAB* 100 MCG TAB PO SCH (05:47)
[2016-10-03] MEDS ORDERED: Furosemide IV* 10 MG/ML 2 ML VIAL (20 MG) IV ONE (06:00)
[2016-10-03] MEDS ORDERED: Scopolomine PATCH Remove* 1 NOTE MISC PATCH OFF ONE (06:00)
[2016-10-03 08:39] LABS: Hematocrit 28 % (35-47); Hemoglobin 9.5 g/dl (12.0-16.0); Mean Corpuscular HGB Conc 35 g/dl (31-36); Mean Corpuscular Hemoglobin 31 pg (27-31); Mean Corpuscular Volume 89 fL (80-97); Mean Platelet Volume 8 um3 (7.4-10.4); Red Blood Count 3.09 10^6/ul (4.0-5.4); Red Cell Distribution Width 15 % (10.5-15); White Blood Count 6.3 10^3/ul (3.5-10.8)
[2016-10-03 08:40] LABS: Comments Flag Yes
[2016-10-03 08:56] LABS: BUN/Creatinine Ratio 30.4 (8-20); Calcium 8.3 mg/dL (8.6-10.3); EGFR African American 110.2 (>60); EGFR Non-African American 85.7 (>60); Potassium 3.5 mmol/L (3.5-5.0)
--- NOTE | 2016-10-03 09:21 | RAD ---
INDICATION: Follow-up status post left-sided pleurodesis 3 days earlier in a woman with left-sided malignant effusion. COMPARISON: Most recent comparison chest x-rays dated October 02, 2016 TECHNIQUE: PA and lateral views of the chest were obtained. FINDINGS: Iatrogenic findings include a left internal jugular vein Mediport with the tip terminating at the cavoatrial junction and a left-sided chest tube positioned in the lateral aspect of the mid-level and left lower lung. Subcutaneous gas overlying the left flank at the chest tube insertion site is unchanged from the previous day. Again seen is a small amount of fluid in the minor fissure of the right. The right lung is otherwise adequately aerated. There is persistent density at the left lung base with density of securing the left hemidiaphragm and costophrenic angle. There is also a persistent small pneumothorax on the left that may be slightly smaller when compared to the previous day chest x-ray. IMPRESSION: OVERALL THERE IS BEEN NO SIGNIFICANT CHANGE IN APPEARANCE AND DEGREE OF AERATION OF THE LEFT LUNG RELATIVE TO THE PREVIOUS DAY CHEST X-RAY BUT AERATION REMAINS IMPROVED SINCE OCTOBER 01, 2016. THERE IS A PERSISTENT SMALL PNEUMOTHORAX IN THE LEFT, PERHAPS SLIGHTLY SMALLER WHEN COMPARED TO THE PREVIOUS DAYS CHEST X-RAY.
[2016-10-03] MEDS: Docusate CAP* 100 MG PO SCH ×2 (09:49→20:49)
[2016-10-03] MEDS: Acetaminophen TAB* 325 MG PO PRN (09:49)
[2016-10-03] MEDS: SALMETEROL INH SCH ×2 (09:50→20:49)
[2016-10-03] MEDS: NS 0.9% 1000 ML* 1,000 ML IV SCH (09:52)
[2016-10-03] MEDS ORDERED: Magnesium Hydroxide LIQ* 30 ML UDC PO ONE (11:11)
[2016-10-04] MEDS: Levothyroxine TAB* 100 MCG TAB PO SCH (06:11)
[2016-10-04 06:47] LABS: BUN/Creatinine Ratio 30.4 (8-20); Calcium 8.2 mg/dL (8.6-10.3); EGFR African American 140.2 (>60); Potassium 3.4 mmol/L (3.5-5.0)
--- NOTE | 2016-10-04 09:39 | RAD ---
Indication: Left-sided pleurodesis with left malignant effusion. 2 views of the chest were reviewed and compared to previous exam dated October 03, 2016. Left chest tube remains in place. Left pleural thickening and persistent infiltrates in the left upper lobe and left base persists. Right lung field is clear. Subcutaneous emphysema in the left lung base appears to be improved. IMPRESSION: Left chest tube remains in place. Pleural thickening remains unchanged from previous exam with infiltrates in the left upper lobe and left base.
[2016-10-04] MEDS: Docusate CAP* 100 MG PO SCH ×2 (10:07→21:33)
[2016-10-04] MEDS: SALMETEROL INH SCH ×2 (10:07→21:33)
[2016-10-04] MEDS: Acetaminophen TAB* 325 MG PO PRN ×2 (10:14→21:33)
[2016-10-04] MEDS: Potassium & Sodium Phos 250MG* = 1 PACKET PO SCH (21:33)
[2016-10-05] MEDS: Levothyroxine TAB* 100 MCG TAB PO SCH (05:50)
[2016-10-05 07:35] LABS: Hematocrit 25 % (35-47); Hemoglobin 8.5 g/dl (12.0-16.0); Mean Corpuscular HGB Conc 35 g/dl (31-36); Mean Corpuscular Hemoglobin 31 pg (27-31); Mean Corpuscular Volume 90 fL (80-97); Mean Platelet Volume 9 um3 (7.4-10.4); Red Blood Count 2.71 10^6/ul (4.0-5.4); Red Cell Distribution Width 16 % (10.5-15); White Blood Count 4.6 10^3/ul (3.5-10.8)
[2016-10-05 07:36] LABS: Add Diff/Slide Review? Slide Review Added; Comments Flag Yes
[2016-10-05 08:16] LABS: Eosinophils % 2 % (0-6); Hypochromasia 1+; Immature Granulocytes 19 % (0-9); Metamyelocytes % 2 % (0-2); Myelocytes % 3 % (0-1); Neutrophil % 66 % (38-83); Polychromasia 1+
[2016-10-05] MEDS: Potassium & Sodium Phos 250MG* = 1 PACKET PO SCH ×2 (09:49→21:54)
[2016-10-05] MEDS: Docusate CAP* 100 MG PO SCH ×2 (09:50→21:54)
[2016-10-05] MEDS: SALMETEROL INH SCH ×2 (09:50→21:54)
[2016-10-05 18:37] LABS: Comments Flag Yes; Mean Platelet Volume 8 um3 (7.4-10.4)
[2016-10-05] MEDS: Acetaminophen TAB* 325 MG PO PRN (21:57)
[2016-10-06] MEDS: Levothyroxine TAB* 100 MCG TAB PO SCH (06:07)
[2016-10-06 06:12] LABS: Comments Flag Yes; Hematocrit 23 % (35-47); Mean Corpuscular HGB Conc 34 g/dl (31-36); Mean Corpuscular Hemoglobin 31 pg (27-31); Mean Corpuscular Volume 90 fL (80-97); Mean Platelet Volume 9 um3 (7.4-10.4); Red Blood Count 2.61 10^6/ul (4.0-5.4); Red Cell Distribution Width 16 % (10.5-15); White Blood Count 4.7 10^3/ul (3.5-10.8)
[2016-10-06] MEDS ORDERED: Alteplase (CATHFLO)* 2 MG VIAL IV ONE (08:27)
[2016-10-06] MEDS: Potassium & Sodium Phos 250MG* = 1 PACKET PO SCH ×2 (08:42→20:38)
[2016-10-06] MEDS: Docusate CAP* 100 MG PO SCH ×2 (08:42→20:39)
[2016-10-06] MEDS: SALMETEROL INH SCH ×2 (08:59→20:37)
[2016-10-06] MEDS ORDERED: STERILE WATER FOR INJ IV PUSH ONE (09:00)
--- NOTE | 2016-10-06 10:22 | PN ---
Progress Note - Progress Note SOAP: Subjective: []Feeling OK, no worse then last couple days, but still very tired. Breathing better then prior to surgery. Ambulating to bathroom and had BM today. Pain well controlled. Denies questions for oncology, wonders about plan for tx. Medications: Acetaminophen (Tylenol Tab*) 650 mg PO Q4H PRN PRN Reason: Pain Or Temperature >101 F Last Admin: 10/05/16 21:57 Dose: 650 mg Docusate Sodium (Colace Cap*) 100 mg PO BID [facility] Last Admin: 10/06/16 08:42 Dose: 100 mg Heparin Sodium (Porcine) (Heparin Flush Port (Ivad)) 5 ml FLUSH DAILY [facility] PRN Reason: Protocol Hydromorphone HCl (Dilaudid Iv*) 0.5 mg IV Q1H PRN PRN Reason: PAIN - SEVERE Sodium Chloride (Ns 0.9% 1000 Ml*) 1,000 mls @ 75 mls/hr IV PER RATE [facility] Last Admin: 10/03/16 09:52 Dose: 75 mls/hr Sodium Chloride (Ns 0.9% 1000 Ml*) 1,000 mls @ 1,000 mls/hr IV ONCE PRN PRN Reason: IF UOP < 300ML OVER 8 HRS Levothyroxine Sodium (Synthroid Tab*) 100 mcg PO 0600 [facility] Last Admin: 10/06/16 06:07 Dose: 100 mcg Ondansetron HCl (Zofran Inj*) 4 mg IV Q4H PRN PRN Reason: NAUSEA/VOMITING Oxycodone/Acetaminophen (Percocet 5/325 Tab*) 1 tab PO Q4H PRN PRN Reason: PAIN Potassium Phos/Sodium Phos (Neutra Phos 250 Mg Reese*) 250 mg PO BID [facility] Last Admin: 10/06/16 08:42 Dose: 250 mg Salmeterol Xinafoate (Serevent Diskus (Nf)) 1 puff INH BID [facility] PRN Reason: Protocol Last Admin: 10/06/16 08:59 Dose: 1 puff Objective: [] Vital Signs Temp Pulse Resp BP Pulse Ox 97.9 F 92 15 120/62 96 10/06/16 07:36 10/06/16 07:36 10/06/16 07:36 10/06/16 07:36 10/06/16 03:26 A&Ox3, EOMI, BLUM HRR, S1S2, no murmur noted LS scatter crackles, left dim. Chest tube draining pena colored fluid +PP=bilat., +1 edema @ ankles Bilat. UE +1 edema, Left lymphedema LCW port benign Laboratory Results - last 24 hr 10/05/16 10/06/16 18:32 05:02 WBC 4.7 RBC 2.61 L Hgb 8.0 L Hct 23 L MCV 90 MCH 31 MCHC 34 RDW 16 H Plt Count 74 L 46 L MPV 8 9 Intake and Output Last 24 Hours 10/04/16 10/05/16 10/06/16 10/07/16 06:59 06:59 06:59 06:59 Intake Total 3193 1690 2425 Output Total 1595 2400 1630 100 Balance 1598 -710 795 -100 Intake: IV Fluids 1023 NS (0.9%) 1023 Oral 2170 1690 2425 Output: Chest Tube #1 345 400 230 Urine 1250 2000 1400 100 Other: Date of Last Bowel 10/05/16 Movement # Bowel Movements 1 0 Estimated Stool Amount Small Small Small Assessment: []66 yo with metastatic breast cancer s/p VATs for malignant pleural effusion now POD 6 with cont.'d bleeding in chest tube. Extensive bone mets with associated cytopenias likely representing bone marrow infiltration complicating ability to remove chest tube. Plan: []1. Transfuse 1 single donor pack platelets today. Hold off on blood today, but likely will need tomorrow (pt. very agreeable to this). 2. Recheck labs in AM 3. Tx. not due until 10/15 D/C per surgery
[2016-10-06 10:42] LABS: Body Fluid Appearance Bloody
[2016-10-06 10:56] LABS: Body Fluid Total Cells Counted 100
[2016-10-06 15:49] LABS: Mean Platelet Volume 8 um3 (7.4-10.4)
[2016-10-06 15:50] LABS: Comments Flag Yes
[2016-10-07] MEDS: Levothyroxine TAB* 100 MCG TAB PO SCH (05:43)
[2016-10-07 06:29] LABS: Albumin 2.1 g/dL (3.2-5.2); BUN/Creatinine Ratio 23.6 (8-20); Calcium 7.5 mg/dL (8.6-10.3); EGFR African American 143.1 (>60); EGFR Non-African American 111.3 (>60); Globulin 2.3 g/dL (2-4); Potassium 3.5 mmol/L (3.5-5.0); Total Bilirubin 1.1 mg/dL (0.2-1.0); Total Protein 4.4 g/dL (6.4-8.9)
[2016-10-07 07:02] LABS: Hematocrit 22 % (35-47); Hemoglobin 7.6 g/dl (12.0-16.0); Mean Corpuscular HGB Conc 34 g/dl (31-36); Mean Corpuscular Hemoglobin 31 pg (27-31); Mean Corpuscular Volume 92 fL (80-97); Mean Platelet Volume 9 um3 (7.4-10.4); Red Blood Count 2.41 10^6/ul (4.0-5.4); Red Cell Distribution Width 16 % (10.5-15)
[2016-10-07 07:14] LABS: Add Diff/Slide Review? Slide Review Added; Comments Flag Yes
[2016-10-07 08:25] LABS: Eosinophils % 1 % (0-6); Immature Granulocytes 10 % (0-9); Metamyelocytes % 4 % (0-2); Myelocytes % 2 % (0-1); Neutrophil % 66 % (38-83); Reactive Lymph % 1 % (0-6)
[2016-10-07 08:27] LABS: Polychromasia 1+
[2016-10-07] MEDS: Docusate CAP* 100 MG PO SCH ×2 (10:13→22:03)
[2016-10-07] MEDS: Potassium & Sodium Phos 250MG* = 1 PACKET PO SCH ×2 (10:14→22:03)
[2016-10-07] MEDS: Acetaminophen TAB* 325 MG PO PRN ×2 (10:14→22:09)
[2016-10-07] MEDS: SALMETEROL INH SCH ×2 (10:15→22:03)
--- NOTE | 2016-10-07 10:37 | PN ---
Progress Note - Progress Note SOAP: Subjective: []Feeling more fatigued today, "droopy...like my counts are low." Chest tube / c cont.'d sanginous drainage. No questions. Not sure she could manage a chest tube @ home. Very aware that healing complicated by underlying bone marrow disfunction. Medications: Acetaminophen (Tylenol Tab*) 650 mg PO Q4H PRN PRN Reason: Pain Or Temperature >101 F Last Admin: 10/07/16 10:14 Dose: 650 mg Docusate Sodium (Colace Cap*) 100 mg PO BID [facility] Last Admin: 10/07/16 10:13 Dose: 100 mg Heparin Sodium (Porcine) (Heparin Flush Port (Ivad)) 5 ml FLUSH DAILY [facility] PRN Reason: Protocol Last Admin: 10/06/16 16:24 Dose: 5 ml Hydromorphone HCl (Dilaudid Iv*) 0.5 mg IV Q1H PRN PRN Reason: PAIN - SEVERE Sodium Chloride (Ns 0.9% 1000 Ml*) 1,000 mls @ 75 mls/hr IV PER RATE [facility] Last Admin: 10/03/16 09:52 Dose: 75 mls/hr Sodium Chloride (Ns 0.9% 1000 Ml*) 1,000 mls @ 1,000 mls/hr IV ONCE PRN PRN Reason: IF UOP < 300ML OVER 8 HRS Levothyroxine Sodium (Synthroid Tab*) 100 mcg PO 0600 [facility] Last Admin: 10/07/16 05:43 Dose: 100 mcg Ondansetron HCl (Zofran Inj*) 4 mg IV Q4H PRN PRN Reason: NAUSEA/VOMITING Oxycodone/Acetaminophen (Percocet 5/325 Tab*) 1 tab PO Q4H PRN PRN Reason: PAIN Potassium Phos/Sodium Phos (Neutra Phos 250 Mg Reese*) 250 mg PO BID [facility] Last Admin: 10/07/16 10:14 Dose: 250 mg Salmeterol Xinafoate (Serevent Diskus (Nf)) 1 puff INH BID [facility] PRN Reason: Protocol Last Admin: 10/07/16 10:15 Dose: 1 puff Objective: [] Vital Signs Temp Pulse Resp BP Pulse Ox 98.0 F 95 18 123/57 97 10/07/16 03:35 10/07/16 03:35 10/07/16 08:00 10/07/16 03:35 10/07/16 03:35 A&Ox3, EOMI, BLUM, neuro grossly non-focal HRR, S1S2, no murmur noted LS R clear, L with crackles and dim. base, resp. even and mildly labored --left chest tube site benign Bilat. UE and LE edematous Laboratory Results - last 24 hr 10/06/16 10/06/16 10/06/16 10:05 10:15 15:30 WBC RBC Hgb Hct MCV MCH MCHC RDW Plt Count 62 L MPV 8 Immature Gran % (Auto) Neut % (Auto) Lymph % (Auto) [place] % (Auto) Eos % (Auto) Baso % (Auto) Absolute Neuts (auto) Absolute Lymphs (auto) Absolute Monos (auto) Absolute Eos (auto) Absolute Basos (auto) Absolute Nucleated RBC Neutrophils % Band Neutrophils % Lymphocytes % Reactive Lymphs % Monocytes % Eosinophils % Metamyelocytes % Myelocytes % Nucleated RBC % Nucleated RBCs/100 WBC Normal RBC Morphology Polychromasia Sodium Potassium Chloride Carbon Dioxide Anion Gap BUN Creatinine Est GFR ( Amer) Est GFR (Non-Af Amer) BUN/Creatinine Ratio Glucose Calcium Total Bilirubin AST ALT Alkaline Phosphatase Total Protein Albumin Globulin Albumin/Globulin Ratio Fluid Volume 10 Fluid Color Red Fluid Appearance Bloody Fluid WBC Fluid RBC Fluid Tot Cell Count 100 Fluid Neutrophils 98 Fluid Lymphocytes 2 Fluid Other Cells 8 Fluid Cell Count Rvw By Crossmatch See Detail 10/07/16 10/07/16 05:47 05:47 WBC 5.0 RBC 2.41 L Hgb 7.6 L Hct 22 L MCV 92 MCH 31 MCHC 34 RDW 16 H Plt Count 54 L MPV 9 Immature Gran % (Auto) 10 H Neut % (Auto) 80.2 Lymph % (Auto) 6.7 L [place] % (Auto) 11.9 H Eos % (Auto) 0.9 Baso % (Auto) 0.3 Absolute Neuts (auto) 4.0 Absolute Lymphs (auto) 0.3 L Absolute Monos (auto) 0.6 Absolute Eos (auto) 0 Absolute Basos (auto) 0 Absolute Nucleated RBC 0.08 Neutrophils % 66 Band Neutrophils % 4 Lymphocytes % 5 L Reactive Lymphs % 1 Monocytes % 17 H Eosinophils % 1 Metamyelocytes % 4 H Myelocytes % 2 H Nucleated RBC % 1.7 Nucleated RBCs/100 WBC 2 H Normal RBC Morphology Not Reportable Polychromasia 1+ Sodium 138 Potassium 3.5 Chloride 104 Carbon Dioxide 28 Anion Gap 6 BUN 13 Creatinine 0.55 Est GFR ( Amer) 143.1 Est GFR (Non-Af Amer) 111.3 BUN/Creatinine Ratio 23.6 H Glucose 105 H Calcium 7.5 L Total Bilirubin 1.10 H AST 53 H ALT 22 Alkaline Phosphatase 271 H Total Protein 4.4 L Albumin 2.1 L Globulin 2.3 Albumin/Globulin Ratio 0.9 L Fluid Volume Fluid Color Fluid Appearance Fluid WBC Fluid RBC Fluid Tot Cell Count Fluid Neutrophils Fluid Lymphocytes Fluid Other Cells Fluid Cell Count Rvw By Crossmatch Assessment: []66 yo f with metastatic breast cancer c/b malignant pleural effusion /c bleeding now s/p VATs and cont.'d bleeding. Plan: []Transfuse 1 unit PRBCs and 1 single donor pack plt. today, follow daily labs
[2016-10-07 12:23] LABS: BUN/Creatinine Ratio 23.7 (8-20); Calcium 7.4 mg/dL (8.6-10.3); EGFR Non-African American 102.6 (>60); Potassium 3.6 mmol/L (3.5-5.0)
[2016-10-08] MEDS: Levothyroxine TAB* 100 MCG TAB PO SCH (05:21)
[2016-10-08 06:04] LABS: Hematocrit 24 % (35-47); Hemoglobin 8.2 g/dl (12.0-16.0); Mean Corpuscular HGB Conc 34 g/dl (31-36); Mean Corpuscular Hemoglobin 31 pg (27-31); Mean Corpuscular Volume 90 fL (80-97); Mean Platelet Volume 9 um3 (7.4-10.4); Red Blood Count 2.68 10^6/ul (4.0-5.4); Red Cell Distribution Width 16 % (10.5-15); White Blood Count 5.8 10^3/ul (3.5-10.8)
[2016-10-08 06:06] LABS: Add Diff/Slide Review? Slide Review Added; Comments Flag Yes
[2016-10-08 06:15] LABS: BUN/Creatinine Ratio 19.6 (8-20); Calcium 7.6 mg/dL (8.6-10.3); EGFR African American 140.2 (>60); Potassium 3.5 mmol/L (3.5-5.0)
[2016-10-08 08:28] LABS: Eosinophils % 2 % (0-6); Immature Granulocytes 19 % (0-9); Metamyelocytes % 3 % (0-2); Myelocytes % 6 % (0-1); Neutrophil % 66 % (38-83); Polychromasia 1+; Reactive Lymph % 3 % (0-6)
[2016-10-08] MEDS: SALMETEROL INH SCH ×2 (09:57→20:58)
[2016-10-08] MEDS: Docusate CAP* 100 MG PO SCH ×2 (09:57→20:57)
[2016-10-08] MEDS: Potassium & Sodium Phos 250MG* = 1 PACKET PO SCH ×2 (09:57→20:58)
[2016-10-08] MEDS: Acetaminophen TAB* 325 MG PO PRN (20:57)
[2016-10-09] MEDS: Levothyroxine TAB* 100 MCG TAB PO SCH (05:56)
[2016-10-09 06:17] LABS: Hematocrit 24 % (35-47); Mean Corpuscular HGB Conc 34 g/dl (31-36); Mean Corpuscular Hemoglobin 31 pg (27-31); Mean Corpuscular Volume 91 fL (80-97); Mean Platelet Volume 8 um3 (7.4-10.4); Red Blood Count 2.58 10^6/ul (4.0-5.4); Red Cell Distribution Width 17 % (10.5-15); White Blood Count 6.7 10^3/ul (3.5-10.8)
[2016-10-09 06:19] LABS: Add Diff/Slide Review? Slide Review Added; Comments Flag Yes
[2016-10-09 06:32] LABS: BUN/Creatinine Ratio 19.3 (8-20); Calcium 7.7 mg/dL (8.6-10.3); EGFR African American 137.3 (>60); EGFR Non-African American 106.8 (>60); Potassium 3.6 mmol/L (3.5-5.0)
[2016-10-09 07:00] LABS: Eosinophils % 1 % (0-6); Hypochromasia 3+; Immature Granulocytes 24 % (0-9); Macrocytosis 1+; Metamyelocytes % 5 % (0-2); Microcytosis 2+; Myelocytes % 2 % (0-1); Neutrophil % 59 % (38-83); Polychromasia 2+
--- NOTE | 2016-10-09 08:32 | PN ---
Progress Note - Progress Note Date of Service: 10/09/16 Note: Surgery Ms. Black denies complaints. She notes that she is still draining blood. Vital Signs 10/08/16 10/08/16 10/08/16 10:00 12:04 15:32 Temperature 98.2 F 98.0 F Pulse Rate 96 96 Respiratory 16 13 16 Rate Blood Pressure 126/59 132/63 (mmHg) O2 Sat by Pulse 96 98 Oximetry 10/08/16 10/08/16 10/08/16 19:51 21:13 23:22 Temperature 98.0 F 98.1 F Pulse Rate 103 99 Respiratory 16 14 18 Rate Blood Pressure 126/58 122/53 (mmHg) O2 Sat by Pulse 94 94 Oximetry 10/09/16 10/09/16 03:22 07:23 Temperature 97.9 F 98.2 F Pulse Rate 93 91 Respiratory 16 16 Rate Blood Pressure 134/68 128/63 (mmHg) O2 Sat by Pulse 97 95 Oximetry Lungs: coarse BS on L>R. Dressing intact. CT level 1450 at 6 am (190 cc since yesterday at 6 Am) There is a cough air leak The drainage is serosanguinous, dark red. ext: notable for left arm swelling Intake & Output 10/08/16 10/09/16 10/09/16 22:59 06:59 14:59 Intake Total 440 220 Output Total 395 1350 Balance 45 -1130 Intake: Oral 440 220 Output: Chest Tube #1 145 50 Urine 250 1300 Laboratory Results - last 24 hr 10/09/16 10/09/16 05:54 05:54 WBC 6.7 RBC 2.58 L Hgb 8.0 L Hct 24 L MCV 91 MCH 31 MCHC 34 RDW 17 H Plt Count 45 L MPV 8 Immature Gran % (Auto) 24 H Neut % (Auto) 82.1 Lymph % (Auto) 7.1 L [place] % (Auto) 9.6 H Eos % (Auto) 0.7 Baso % (Auto) 0.5 Absolute Neuts (auto) 5.5 Absolute Lymphs (auto) 0.5 L Absolute Monos (auto) 0.6 Absolute Eos (auto) 0 Absolute Basos (auto) 0 Absolute Nucleated RBC 0.06 Neutrophils % 59 Band Neutrophils % 17 H Lymphocytes % 8 L Monocytes % 8 Eosinophils % 1 Metamyelocytes % 5 H Myelocytes % 2 H Nucleated RBC % 0.8 Nucleated RBCs/100 WBC 3 H Normal RBC Morphology Not Reportable Polychromasia 2+ Hypochromasia 3+ Microcytosis 2+ Macrocytosis 1+ Sodium 139 Potassium 3.6 Chloride 105 Carbon Dioxide 28 Anion Gap 6 BUN 11 Creatinine 0.57 Est GFR ( Amer) 137.3 Est GFR (Non-Af Amer) 106.8 BUN/Creatinine Ratio 19.3 Glucose 91 Calcium 7.7 L A/P: POD#9 s/p mechanical pleurodesis; slow progress; platelets 45 today. Will check cxr for evaluation of air leak. Continue CT drainage for now. Encourage self massage for management of arm edema.
[2016-10-09] MEDS: Potassium & Sodium Phos 250MG* = 1 PACKET PO SCH ×2 (09:31→21:28)
[2016-10-09] MEDS: SALMETEROL INH SCH ×2 (09:31→21:28)
[2016-10-09] MEDS: Docusate CAP* 100 MG PO SCH ×2 (09:33→21:28)
--- NOTE | 2016-10-09 09:53 | RAD ---
INDICATION: Left chest tube, air leak evaluation. COMPARISON: Comparison is made with prior chest x-ray studies from October 03, 2016 and October 04, 2016. TECHNIQUE: AP and lateral views of the chest were obtained. FINDINGS: The heart is within normal limits in size and unchanged. There is a central venous catheter entering on the left side. The catheter tip projects over the right atrium. There is a chest tube present on the left side which has been pulled back. There appears to be pleural thickening or a loculated pleural effusion present which is slightly less prominent than on the prior study. There is a small amount of air within the lateral chest wall which is slightly decreased. There is a small infiltrate present at the left lung base which is unchanged. IMPRESSION: THE LEFT CHEST TUBE HAS BEEN PULLED BACK. THERE IS RESIDUAL LEFT PLEURAL THICKENING OR LOCULATED FLUID WHICH HAS DECREASED SLIGHTLY. THERE IS A SMALL AMOUNT OF AIR WITHIN THE LATERAL CHEST WALL WHICH HAS DECREASED. THERE IS A SMALL INFILTRATE AT THE LEFT LUNG BASE WHICH IS UNCHANGED.
[2016-10-09] MEDS: Acetaminophen TAB* 325 MG PO PRN (21:28)
[2016-10-10] MEDS: Levothyroxine TAB* 100 MCG TAB PO SCH (05:07)
[2016-10-10 05:51] LABS: Comments Flag Yes; Hematocrit 24 % (35-47); Mean Corpuscular HGB Conc 34 g/dl (31-36); Mean Corpuscular Hemoglobin 32 pg (27-31); Mean Corpuscular Volume 94 fL (80-97); Mean Platelet Volume 9 um3 (7.4-10.4); Red Blood Count 2.53 10^6/ul (4.0-5.4); Red Cell Distribution Width 16 % (10.5-15); White Blood Count 6.7 10^3/ul (3.5-10.8)
[2016-10-10 05:52] LABS: Add Diff/Slide Review? Slide Review Added
[2016-10-10 05:56] LABS: BUN/Creatinine Ratio 20.3 (8-20); Calcium 7.8 mg/dL (8.6-10.3); EGFR Non-African American 102.6 (>60); Potassium 3.7 mmol/L (3.5-5.0)
[2016-10-10 06:15] LABS: Hypochromasia 1+; Immature Granulocytes 11 % (0-9); Myelocytes % 2 % (0-1); Neutrophil % 69 % (38-83); Polychromasia 1+
[2016-10-10] MEDS: Potassium & Sodium Phos 250MG* = 1 PACKET PO SCH ×2 (09:16→20:48)
[2016-10-10] MEDS: Docusate CAP* 100 MG PO SCH ×2 (09:17→20:48)
[2016-10-10] MEDS: SALMETEROL INH SCH ×2 (09:17→20:51)
--- NOTE | 2016-10-10 10:35 | PN ---
Progress Note - Progress Note Date of Service: 10/10/16 SOAP: Subjective: Good pain control. Denies SOB. Objective: Vital Signs Temp 98.1 F 10/10/16 07:15 Pulse 91 10/10/16 07:15 Resp 20 10/10/16 08:00 BP 119/60 10/10/16 07:15 Pulse Ox 96 10/10/16 08:00 NAD BUE edema Chest tube intact, No A/L noted. Intake & Output 10/09/16 10/10/16 10/10/16 18:59 06:59 18:59 Intake Total 760 480 Output Total 845 760 300 Balance -85 -280 -300 Intake: Oral 760 480 Output: Chest Tube #1 20 110 Urine 825 650 300 Other: Date of Last Bowel 10/10/16 Movement # Bowel Movements 1 Estimated Stool Amount Small Laboratory Results - last 24 hr 10/10/16 10/10/16 05:10 05:10 WBC 6.7 RBC 2.53 L Hgb 8.0 L Hct 24 L MCV 94 MCH 32 H MCHC 34 RDW 16 H Plt Count 46 L MPV 9 Immature Gran % (Auto) 11 H Neut % (Auto) 83.4 H Lymph % (Auto) 6.5 L [place] % (Auto) 9.1 H Eos % (Auto) 0.4 Baso % (Auto) 0.6 Absolute Neuts (auto) 5.6 Absolute Lymphs (auto) 0.4 L Absolute Monos (auto) 0.6 Absolute Eos (auto) 0 Absolute Basos (auto) 0 Absolute Nucleated RBC 0.1 Neutrophils % 69 Band Neutrophils % 9 H Lymphocytes % 8 L Monocytes % 12 Myelocytes % 2 H Nucleated RBC % Not Reportable Nucleated RBCs/100 WBC 2 H Normal RBC Morphology Not Reportable Polychromasia 1+ Hypochromasia 1+ Sodium 138 Potassium 3.7 Chloride 103 Carbon Dioxide 29 Anion Gap 6 BUN 12 Creatinine 0.59 Est GFR ( Amer) 132.0 Est GFR (Non-Af Amer) 102.6 BUN/Creatinine Ratio 20.3 H Glucose 97 Calcium 7.8 L Assessment: 66 yo with metastatic breast cancer s/p VATs for malignant pleural effusion now POD#10 with cont.'d bleeding in chest tube. CXR yesterday essentially unchanged. Plan: Cont chest tube. Plan per Dr. Pierson who will f/u.
[2016-10-10] MEDS: Acetaminophen TAB* 325 MG PO PRN (20:48)
[2016-10-11] MEDS: Levothyroxine TAB* 100 MCG TAB PO SCH (05:17)
[2016-10-11 05:23] LABS: Hematocrit 22 % (35-47); Hemoglobin 7.5 g/dl (12.0-16.0); Mean Corpuscular HGB Conc 34 g/dl (31-36); Mean Corpuscular Hemoglobin 32 pg (27-31); Mean Corpuscular Volume 93 fL (80-97); Mean Platelet Volume 9 um3 (7.4-10.4); Red Blood Count 2.34 10^6/ul (4.0-5.4); Red Cell Distribution Width 17 % (10.5-15); White Blood Count 6.8 10^3/ul (3.5-10.8)
[2016-10-11 05:29] LABS: Add Diff/Slide Review? Slide Review Added; Comments Flag Yes
[2016-10-11 05:34] LABS: BUN/Creatinine Ratio 19.7 (8-20); EGFR Non-African American 90.2 (>60); Potassium 3.7 mmol/L (3.5-5.0)
[2016-10-11 05:57] LABS: Eosinophils % 1 % (0-6); Hypochromasia 1+; Immature Granulocytes 15 % (0-9); Myelocytes % 1 % (0-1); Neutrophil % 70 % (38-83); Polychromasia 1+
[2016-10-11] MEDS: Potassium & Sodium Phos 250MG* = 1 PACKET PO SCH ×2 (08:46→20:58)
[2016-10-11] MEDS: Docusate CAP* 100 MG PO SCH ×2 (08:46→20:57)
[2016-10-11] MEDS: SALMETEROL INH SCH ×2 (08:46→20:59)
[2016-10-11] MEDS: Acetaminophen TAB* 325 MG PO PRN (21:30)
[2016-10-12] MEDS: Levothyroxine TAB* 100 MCG TAB PO SCH (05:25)
[2016-10-12 05:53] LABS: Hematocrit 22 % (35-47); Hemoglobin 7.4 g/dl (12.0-16.0); Mean Corpuscular HGB Conc 34 g/dl (31-36); Mean Corpuscular Hemoglobin 32 pg (27-31); Mean Corpuscular Volume 93 fL (80-97); Mean Platelet Volume 9 um3 (7.4-10.4); Red Blood Count 2.31 10^6/ul (4.0-5.4); Red Cell Distribution Width 17 % (10.5-15); White Blood Count 7.2 10^3/ul (3.5-10.8)
[2016-10-12 05:54] LABS: Comments Flag Yes
[2016-10-12 05:55] LABS: Add Diff/Slide Review? Slide Review Added
[2016-10-12 06:44] LABS: Hypochromasia 2+; Immature Granulocytes 17 % (0-9); Myelocytes % 1 % (0-1); Neutrophil % 75 % (38-83); Polychromasia 1+
[2016-10-12 07:06] LABS: BUN/Creatinine Ratio 21.2 (8-20); EGFR Non-African American 90.2 (>60); Potassium 3.7 mmol/L (3.5-5.0)
[2016-10-12] MEDS: Potassium & Sodium Phos 250MG* = 1 PACKET PO SCH ×2 (08:13→20:14)
[2016-10-12] MEDS: Docusate CAP* 100 MG PO SCH ×2 (08:13→20:14)
[2016-10-12] MEDS: SALMETEROL INH SCH ×2 (08:13→20:14)
--- NOTE | 2016-10-12 10:02 | PN ---
Progress Note - Progress Note Date of Service: 10/12/16 SOAP: Subjective: []Feeling pretty good. Dr. Pierson set up tube for home, however she is anxious about managing and would like to hold off on d/c until she has used it several times. Has hospital bed at home, no stairs. Has been ambulating around unit a little. Some SOB, though not significantly worse then before. No pain. Has been massaging left arm and noting a lot of improvement. No issues with bowels. Medications: Acetaminophen (Tylenol Tab*) 650 mg PO Q4H PRN PRN Reason: Pain Or Temperature >101 F Last Admin: 10/11/16 21:30 Dose: 650 mg Docusate Sodium (Colace Cap*) 100 mg PO BID [facility] Last Admin: 10/12/16 08:13 Dose: 100 mg Heparin Sodium (Porcine) (Heparin Flush Port (Ivad)) 5 ml FLUSH DAILY [facility] PRN Reason: Protocol Last Admin: 10/12/16 08:15 Dose: Not Given Sodium Chloride (Ns 0.9% 1000 Ml*) 1,000 mls @ 75 mls/hr IV PER RATE [facility] Last Admin: 10/03/16 09:52 Dose: 75 mls/hr Sodium Chloride (Ns 0.9% 1000 Ml*) 1,000 mls @ 1,000 mls/hr IV ONCE PRN PRN Reason: IF UOP < 300ML OVER 8 HRS Levothyroxine Sodium (Synthroid Tab*) 100 mcg PO 0600 [facility] Last Admin: 10/12/16 05:25 Dose: 100 mcg Ondansetron HCl (Zofran Inj*) 4 mg IV Q4H PRN PRN Reason: NAUSEA/VOMITING Potassium Phos/Sodium Phos (Neutra Phos 250 Mg Reese*) 250 mg PO BID [facility] Last Admin: 10/12/16 08:13 Dose: 250 mg Salmeterol Xinafoate (Serevent Diskus (Nf)) 1 puff INH BID [facility] PRN Reason: Protocol Last Admin: 10/12/16 08:13 Dose: 1 puff Objective: [] Vital Signs Temp Pulse Resp BP Pulse Ox 98.1 F 92 16 149/65 96 10/12/16 07:48 10/12/16 07:48 10/12/16 07:48 10/12/16 07:48 10/12/16 07:48 A&Ox3, EOMI, BLUM, neuro grossly non-focal HRR, S1S2, no murmur LS L dim., R clear, resp. mildly labored and mild tachypnea with conversation/ exertion +BS, abd. soft and non-tender +PP=bilat., trace edema ankles Left lymphedema decrease substantially, right arm slight edema r/t bruising Laboratory Results - last 24 hr 10/12/16 10/12/16 05:20 05:20 WBC 7.2 RBC 2.31 L Hgb 7.4 L Hct 22 L MCV 93 MCH 32 H MCHC 34 RDW 17 H Plt Count 52 L MPV 9 Immature Gran % (Auto) 17 H Neut % (Auto) 83.2 H Lymph % (Auto) 7.6 L [place] % (Auto) 8.2 Eos % (Auto) 0.4 Baso % (Auto) 0.6 Absolute Neuts (auto) 6.0 Absolute Lymphs (auto) 0.5 L Absolute Monos (auto) 0.6 Absolute Eos (auto) 0 Absolute Basos (auto) 0 Absolute Nucleated RBC 0.06 Neutrophils % 75 Band Neutrophils % 16 H Lymphocytes % 2 L Monocytes % 6 Myelocytes % 1 Nucleated RBC % 0.9 Nucleated RBCs/100 WBC 1 H Normal RBC Morphology Not Reportable Polychromasia 1+ Hypochromasia 2+ Sodium 135 Potassium 3.7 Chloride 104 Carbon Dioxide 29 Anion Gap 2 BUN 14 Creatinine 0.66 Est GFR ( Amer) 116.0 Est GFR (Non-Af Amer) 90.2 BUN/Creatinine Ratio 21.2 H Glucose 97 Calcium 8.0 L Assessment: []66 yo female with advanced breast cancer c/b recurrent malignant effusion s/p VATs with minimal improvement r/t bleeding. Plan: []1. Malignant pleural effusion: hemorrhagic with chest tube per Dr. Pierson 2. Anemia: acute r/t pleural hemorrhage on chronic r/t infiltrative process ( clinically dx r/t pancytopenia, abnormalities on differential, and extensive bone mets), transfuse prior to planned d/c tomorrow 3. Lymphedema: neg. for DVT, cont. massage 4. Cancer: will plan to resume Her2 meds on schedule but with chest tube hold Carboplatin for now Disposition: appears stable for d/c tomorrow as long as tolerates new tube set up. D/c per surgery.
[2016-10-13] MEDS: Levothyroxine TAB* 100 MCG TAB PO SCH (05:26)
[2016-10-13 06:14] LABS: Hematocrit 21 % (35-47); Hemoglobin 6.8 g/dl (12.0-16.0); Mean Corpuscular HGB Conc 33 g/dl (31-36); Mean Corpuscular Hemoglobin 32 pg (27-31); Mean Corpuscular Volume 96 fL (80-97); Mean Platelet Volume 9 um3 (7.4-10.4); Red Blood Count 2.14 10^6/ul (4.0-5.4); Red Cell Distribution Width 17 % (10.5-15); White Blood Count 6.7 10^3/ul (3.5-10.8)
[2016-10-13 06:15] LABS: Comments Flag Yes
[2016-10-13 06:16] LABS: Add Diff/Slide Review? Slide Review Added
[2016-10-13 06:35] LABS: BUN/Creatinine Ratio 21.6 (8-20); EGFR African American 101.6 (>60); Potassium 3.7 mmol/L (3.5-5.0)
[2016-10-13 06:49] LABS: Hypochromasia 1+; Immature Granulocytes 21 % (0-9); Macrocytosis 1+; Metamyelocytes % 2 % (0-2); Microcytosis 1+; Neutrophil % 68 % (38-83); Polychromasia 1+
[2016-10-13] MEDS: Docusate CAP* 100 MG PO SCH (08:25)
[2016-10-13] MEDS: Potassium & Sodium Phos 250MG* = 1 PACKET PO SCH (08:25)
[2016-10-13] MEDS: SALMETEROL INH SCH (08:28)
--- NOTE | 2016-10-13 09:41 | PN ---
Progress Note - Progress Note Date of Service: 10/13/16 SOAP: Subjective: []Pt. seen quickly today to confirm d/c. Feeling tired, but very ready to go home. No complaints. Left chest tube /c heimlich valve tolerated well over last 24 hours. No change in breathing. 1 unit PRBCs infusing as per orders. Medications: Acetaminophen (Tylenol Tab*) 650 mg PO Q4H PRN PRN Reason: Pain Or Temperature >101 F Last Admin: 10/11/16 21:30 Dose: 650 mg Docusate Sodium (Colace Cap*) 100 mg PO BID [facility] Last Admin: 10/13/16 08:25 Dose: 100 mg Heparin Sodium (Porcine) (Heparin Flush Port (Ivad)) 5 ml FLUSH DAILY [facility] PRN Reason: Protocol Last Admin: 10/13/16 05:40 Dose: 5 ml Sodium Chloride (Ns 0.9% 1000 Ml*) 1,000 mls @ 75 mls/hr IV PER RATE [facility] Last Admin: 10/03/16 09:52 Dose: 75 mls/hr Sodium Chloride (Ns 0.9% 1000 Ml*) 1,000 mls @ 1,000 mls/hr IV ONCE PRN PRN Reason: IF UOP < 300ML OVER 8 HRS Levothyroxine Sodium (Synthroid Tab*) 100 mcg PO 0600 [facility] Last Admin: 10/13/16 05:26 Dose: 100 mcg Ondansetron HCl (Zofran Inj*) 4 mg IV Q4H PRN PRN Reason: NAUSEA/VOMITING Potassium Phos/Sodium Phos (Neutra Phos 250 Mg Reese*) 250 mg PO BID [facility] Last Admin: 10/13/16 08:25 Dose: 250 mg Salmeterol Xinafoate (Serevent Diskus (Nf)) 1 puff INH BID [facility] PRN Reason: Protocol Last Admin: 10/13/16 08:28 Dose: 1 puff Objective: [] Vital Signs Temp Pulse Resp BP Pulse Ox 98.1 F 97 16 116/64 95 10/13/16 09:12 10/13/16 09:12 10/13/16 09:12 10/13/16 09:12 10/13/16 09:12 A&Ox3, EOMI, BLUM, neuro grossly non-focal Resp. even and non-labored Pt. resting in no acute distress, communicating clearing Left Chest tube benign, sanguineous drainage Laboratory Results - last 24 hr 10/12/16 10/13/16 10/13/16 05:20 05:30 05:30 WBC 6.7 RBC 2.14 L Hgb 6.8 L Hct 21 L MCV 96 MCH 32 H MCHC 33 RDW 17 H Plt Count 46 L MPV 9 Immature Gran % (Auto) 21 H Neut % (Auto) 83.8 H Lymph % (Auto) 6.9 L [place] % (Auto) 8.6 Eos % (Auto) 0.3 Baso % (Auto) 0.4 Absolute Neuts (auto) 5.6 Absolute Lymphs (auto) 0.5 L Absolute Monos (auto) 0.6 Absolute Eos (auto) 0 Absolute Basos (auto) 0 Absolute Nucleated RBC 0.09 Neutrophils % 68 Band Neutrophils % 19 H Lymphocytes % 4 L Monocytes % 7 Metamyelocytes % 2 Nucleated RBC % 1.3 Normal RBC Morphology Not Reportable Polychromasia 1+ Hypochromasia 1+ Microcytosis 1+ Macrocytosis 1+ Sodium 134 Potassium 3.7 Chloride 103 Carbon Dioxide 30 Anion Gap 1 L BUN 16 Creatinine 0.74 Est GFR ( Amer) 101.6 Est GFR (Non-Af Amer) 79.0 BUN/Creatinine Ratio 21.6 H Glucose 96 Calcium 8.0 L Blood Type O Negative Antibody Screen Negative Crossmatch See Detail Intake & Output 10/11/16 10/12/16 10/13/16 10/14/16 06:59 06:59 06:59 06:59 Intake Total 2069 2530 1350 Output Total 2135 1555 1365 Balance -65 975 -15 Intake: Oral 2070 2530 1350 Output: Chest Tube #1 235 255 140 Urine 1900 1300 1225 Other: # Bowel Movements 0 1 Estimated Stool Amount Small Small Small Intake & Output 10/11/16 10/12/16 10/13/16 10/14/16 06:59 06:59 06:59 06:59 Intake Total 0 2530 1350 Output Total 2135 1555 1365 Balance -65 975 -15 Intake: Oral 2070 2530 1350 Output: Chest Tube #1 235 255 140 Urine 1900 1300 1225 Other: # Bowel Movements 0 1 Estimated Stool Amount Small Small Small Intake and Output Last 24 Hours 10/11/16 10/12/16 10/13/16 10/14/16 06:59 06:59 06:59 06:59 Intake Total 2070 2530 1350 Output Total 2135 1555 1365 Balance -65 975 -15 Intake: Oral 2070 2530 1350 Output: Chest Tube #1 235 255 140 Urine 1900 1300 1225 Other: # Bowel Movements 0 1 Estimated Stool Amount Small Small Small Assessment: []66 yo f s/p chest tube placement for malignant pleural effusion /c cont.'d sanguineous drainage though somewhat decreased output. Overall doing reasonably well with advanced breast cancer with clinical bone marrow involvement. Plan: []1. Complete transfusion and otherwise OK for d/c from Hem/Onc perspective. Will f/u in our clinic 10/15 for treatment (chemotherapy dependent on plt, but will plan both HER2 agents) and then OV with Dr. Dinh in approx. 2 weeks. 2. Chest tube per surgery.
[2016-10-13 11:16] VITALS: BP 124/62
--- NOTE | 2016-10-14 07:50 | DS ---
CC: Dr. Que Pierson; Dr. Srinivasa Espinoza; Dr. Jesse Dinh DISCHARGE SUMMARY: DATE OF ADMISSION: 09/30/16 DATE OF DISCHARGE: 10/13/16 DATE OF OPERATION: 09/30/16 PRINCIPAL ADMITTING DIAGNOSES: 1. Carcinoma of the breast with metastasis with malignant pleural effusion. 2. Chronic anemia. 3. Chronic thrombocytopenia. SECONDARY DIAGNOSES: Include: 1. Asthma. 2. Diet-controlled diabetes. 3. Hyperlipidemia. 4. Neuropathy. 5. Lymphedema. 6. History of cholecystectomy. 7. Hip replacement. 8. She also had mastectomy. 9. C-sections. HOSPITAL COURSE: The patient is a 66-year-old female, who came to the hospital , was taken to the operating room on 09/30/16, where she underwent a video thoracoscopy with clean out of her clot and blood in the left chest and had a mechanical pleurodesis. She had a chest tube left in place. She continued to have persistent bloody drainage from the tumor involvement of the pleura and required prolonged chest drainage. She also had recurrent anemia requiring transfusions as well as thrombocytopenia requiring transfusion. She was being managed in that regard by the oncology service. After a week of drainage, it was felt it is prudent to try to convert her to a waterless Pleur-evac in order to get her home and continue the drainage at home; however, the waterless Pleur- evac was on back order, so ultimately it was decided to create a drainage system using a Heimlich valve and a Barrera bag; this worked successfully. The patient was thought to manage this herself and was comfortable doing so, and therefore, she was discharged home on 10/13/16. She will continue to follow with Oncology regarding her chemotherapy and her anemia and thrombocytopenia. We will continue to manage her regarding the chest tube. She will be seen back in the office in 2 days to follow up on the chest tube. [id number]/[facility] #: [id number] ZOILA
== END 2016-10-13 12:15 | disposition home health service (06) | DRG 950 ==
LOC: AA 08:54 → SSU 13:56
PROVIDERS: ADMIT Surgery; ATTEND Surgery
PROC: 0BDP4ZZ Extraction of Left Pleura, Percutaneous Endoscopic Approach (ICD-10-PCS; 2016-09-30)
PROC: 0B5P4ZZ Destruction of Left Pleura, Percutaneous Endoscopic Approach (ICD-10-PCS; 2016-09-30)
PROC: 0W9B40Z Drainage of Left Pleural Cavity with Drainage Device, Percutaneous Endoscopic Approach (ICD-10-PCS; 2016-09-30)
PROC: 30233R1 Transfusion of Nonautologous Platelets into Peripheral Vein, Percutaneous Approach (ICD-10-PCS; principal; 2016-09-30 10:15)
PROC: 30233N1 Transfusion of Nonautologous Red Blood Cells into Peripheral Vein, Percutaneous Approach (ICD-10-PCS; 2016-10-13)
DX: C50.912 Malignant neoplasm of unspecified site of left female breast (principal); J91.0 Malignant pleural effusion; D61.818 Other pancytopenia; C79.51 Secondary malignant neoplasm of bone; C79.52 Secondary malignant neoplasm of bone marrow; D62 Acute posthemorrhagic anemia; E11.40 Type 2 diabetes mellitus with diabetic neuropathy, unspecified; D64.9 Anemia, unspecified; I89.0 Lymphedema, not elsewhere classified; E87.5 Hyperkalemia; J45.909 Unspecified asthma, uncomplicated; E78.5 Hyperlipidemia, unspecified; Z90.49 Acquired absence of other specified parts of digestive tract; Z96.649 Presence of unspecified artificial hip joint; Z90.10 Acquired absence of unspecified breast and nipple; Z88.8 Allergy status to other drugs, medicaments and biological substances
CPT/HCPCS: 36415; 71010; 71020; 80048; 80053; 85025; 85027; 85049; 86850; 86900; 86901; 86922; 87070; 87205; 88305; 89051; 94760; 99231; 99232; A9270-GY; C1781; J0690; J0780; J1642; J1940; J2250; J2270; J2405; J2704; J2997; J3010; P9016; P9035; P9040

== ENCOUNTER 2016-10-24 05:32 | Inpatient (IN) | payer BC ==
[2016-10-24] MEDS ORDERED: NS 0.9% 1000 ML* 1,000 ML IV SCH (06:00)
[2016-10-24] MEDS ORDERED: fentaNYL* 50 MCG/ML 2 ML VIAL (100 MCG VIAL) IV SLOW PU ONE (06:18)
[2016-10-24] MEDS ORDERED: Ondansetron INJ* 2 MG/ML VIAL IV ONE (06:19)
[2016-10-24 06:32] LABS: Hematocrit 33 % (35-47); Hemoglobin 10.6 g/dl (12.0-16.0); Mean Corpuscular HGB Conc 33 g/dl (31-36); Mean Corpuscular Hemoglobin 31 pg (27-31); Mean Corpuscular Volume 95 fL (80-97); Mean Platelet Volume 8 um3 (7.4-10.4); Red Blood Count 3.42 10^6/ul (4.0-5.4); Red Cell Distribution Width 19 % (10.5-15)
[2016-10-24 06:34] LABS: Comments Flag Yes
[2016-10-24 06:35] LABS: Add Diff/Slide Review? Slide Review Added
[2016-10-24 06:46] LABS: Albumin 2.2 g/dL (3.2-5.2); BUN/Creatinine Ratio 24.6 (8-20); C Reactive Protein 144.46 mg/L (< 5.00); EGFR African American 110.2 (>60); EGFR Non-African American 85.7 (>60); Globulin 2.9 g/dL (2-4); Potassium 3.8 mmol/L (3.5-5.0); Total Bilirubin 1.1 mg/dL (0.2-1.0); Total Protein 5.1 g/dL (6.4-8.9)
[2016-10-24 06:51] LABS: Troponin I 0.07 ng/mL (<0.04)
--- NOTE | 2016-10-24 07:24 | ED ---
Cathie Quijano Rebecca, scribed for Ricahrd Fernandez MD on 10/24/16 at 0621 . HPI Chest Pain - HPI Summary HPI Summary: Pt is a 66 y/o F who presents to ED c/o CP secondary to chest tube. Pt reports chronic, mild pain due to the chest tube, but this morning at 0400 the pain became significantly worse. Pain is in the lower sternal and left lateral regions, where the chest tube is placed. Pain is currently severe, ranked 10/10 with occasional sharp shooting sensations. Took 2 tylenol at 0000. Sx aggravated by sitting up, alleviated by nothing. Notes SOB when pain is sharp, however currently she is not experiencing SOB. PMHx metastatic breast CA. Oncologist is Dr. Dinh. o - History of Current Complaint Chief Complaint: EDChestPainROMI Time Seen by Provider: 10/24/16 05:53 Hx Obtained From: Patient Onset/Duration: Still Present, Worse Since - this morning at 0400 Timing: Constant Current Severity: Severe Pain Intensity: 10 Pain Scale Used: 0-10 Numeric Chest Pain Location: Lower Sternal, Left Lateral Chest Pain Radiates: No Character: Sharp/Stabbing Aggravating Factor(s): Other: - Sitting up Alleviating Factor(s): Nothing Associated Signs and Symptoms: Positive: Shortness of Breath - when pain is sharp, not now - Additional Pertinent History Primary Care Physician: [id number] - Allergy/Home Medications Allergies/Adverse Reactions: Allergies Allergy/AdvReac Type Severity Reaction Status Date / Time Alcohol [From Taxotere] Allergy Severe Anaphylatic Verified 10/24/16 05:41 Shock Capecitabine [From Xeloda] Allergy Severe SEE BELOW Verified 10/24/16 05:41 Docetaxel [From Taxotere] Allergy Severe Anaphylatic Verified 10/24/16 05:41 Shock Ethanol [From Taxotere] Allergy Severe Anaphylatic Verified 10/24/16 05:41 Shock Fluorouracil Allergy Severe See Comment Verified 10/24/16 05:41 Nickel Allergy Severe Rash Verified 10/24/16 05:41 Sorbitan [From Taxotere] Allergy Severe Anaphylatic Verified 10/24/16 05:41 Shock Camphor [From BenGay Patch] Allergy Intermediate See Comment Verified 10/24/16 05:41 Carboxymethylcellulose Allergy Intermediate See Comment Verified 10/24/16 05:41 [From BenGay Patch] Menthol [From BenGay Patch] Allergy Intermediate See Comment Verified 10/24/16 05:41 Methyl Salicylate Allergy Intermediate See Comment Verified 10/24/16 05:41 [From BenGay Patch] Potassium Dichromate Allergy Intermediate Rash Verified 10/24/16 05:41 yew bushes Allergy Severe anaphylacti Uncoded 10/24/16 05:41 c sunscreen Allergy Intermediate Rash Uncoded 10/24/16 05:41 surgical tape Allergy Intermediate Rash/burn Uncoded 10/24/16 05:41 deoderant Allergy Mild Rash Uncoded 10/24/16 05:41 shoe dye Allergy Mild Rash Uncoded 10/24/16 05:41 PMH/Surg Hx/FS Hx/Imm Hx Endocrine/Hematology History: Reports: Hx Blood Disorders, Hx Diabetes - NO MEDS : TYPE 2, Hx Thyroid Disease, Hx Anemia - 05/28/2013 Denies: Hx Systemic Lupus Erythematosus Cardiovascular History: Reports: Hx Hypercholesterolemia Denies: Hx Congestive Heart Failure, Hx Hypertension, Hx Pacemaker/ICD Respiratory History: Reports: Hx Asthma - PT STATES ASTHMATIC RESPONSE TO RECENT CHEMO TREATMENT, Other Respiratory Problems/Disorders - pleural effusion left lung History: Denies: Hx Renal Disease Musculoskeletal History: Reports: Hx Arthritis - bilateral knees, Other Musculoskeletal History - ,HAD HIP REPLACED. MET. BREAST CA. Denies: Hx Rheumatoid Arthritis Sensory History: Reports: Hx Contacts or Glasses - GLASSES Denies: Hx Hearing Aid Opthamlomology History: Reports: Hx Contacts or Glasses - GLASSES Neurological History: Reports: Hx Nerve Disease - neuropathy left hand , right side of face, right foot Psychiatric History: Denies: Hx Panic Disorder - Cancer History Cancer Type, Location and Year: breast ca with bone mets Hx Chemotherapy: Yes - 11-14-15 Hx Radiation Therapy: Yes Hx Palliative Cancer Treatment: No - Surgical History Surgery Procedure, Year, and Place: WISDOM TEETH REMOVAL,1984 & 1986 X2,[facility] TUBAL,LEFT MASTECTOMY 1998,LAPAROSCOPIC GALLBLADDER 2001;[facility] HIP REPLACEMENT RIGHT 07/2012, [facility], SIDE PORT PLACEMENT 04/2014, right sided port placement 06/29 removed 05/02 Hx Anesthesia Reactions: Yes - EPIDURALS DOES NOT WORK - Immunization History Date of Tetanus Vaccine: unk Date of Influenza Vaccine: utd Infectious Disease History: No Infectious Disease History: Denies: Hx Clostridium Difficile, Traveled Outside the [place] in Last 30 Days - Family History Known Family History: Positive: Diabetes, Other - BREAST CA - Social History Alcohol Use: None Substance Use Type: Reports: None Smoking Status (MU): Never Smoked Tobacco Have You Smoked in the Last Year: No Review of Systems Positive: Chest Pain Positive: Shortness Of Breath - When pain is sharp, currently not present All Other Systems Reviewed And Are Negative: Yes Physical Exam - Summary Physical Exam Summary: General: well-appearing, mild to moderate pain distress Skin: warm, color reflects adequate perfusion, dry Head: normal Eyes: EOMI, UCHE ENT: normal Neck: supple, nontender Respiratory: CTA, breath sounds present, good breath sounds bilaterally Cardiovascular: RRR Musculoskeletal: normal, strength/ROM intact Neurological: normal, sensory/motor intact, A&O x3 Psychological: affect/mood appropriate Triage Information Reviewed: Yes Vital Signs On Initial Exam: Initial Vitals Temp Pulse Resp BP Pulse Ox 97.3 F 93 20 118/65 95 10/24/16 05:33 10/24/16 05:33 10/24/16 05:33 10/24/16 05:33 10/24/16 05:33 Vital Signs Reviewed: Yes - [place] Coma Scale Coma Scale Total: 15 Diagnostics - Vital Signs Vital Signs Temp Pulse Resp BP Pulse Ox 10/24/16 05:36 97.3 F 93 18 118/65 95 10/24/16 05:33 97.3 F 93 20 118/65 95 - Laboratory Lab Results: Lab Results 10/24/16 10/24/16 10/24/16 Range/Units 06:11 06:11 06:11 WBC 7.0 (3.5-10.8) 10^3/ul RBC 3.42 L (4.0-5.4) 10^6/ul Hgb 10.6 L (12.0-16.0) g/dl Hct 33 L (35-47) % MCV 95 (80-97) fL MCH 31 (27-31) pg MCHC 33 (31-36) g/dl RDW 19 H (10.5-15) % Plt Count 71 L D (150-450) 10^3/ul MPV 8 (7.4-10.4) um3 Neut % (Auto) 84.2 H (38-83) % Lymph % (Auto) 4.4 L (25-47) % [place] % (Auto) 10.5 H (1-9) % Eos % (Auto) 0.5 (0-6) % Baso % (Auto) 0.4 (0-2) % Absolute Neuts (auto) 5.9 (1.5-7.7) 10^3/ul Absolute Lymphs (auto) 0.3 L (1.0-4.8) 10^3/ul Absolute Monos (auto) 0.7 (0-0.8) 10^3/ul Absolute Eos (auto) 0 (0-0.6) 10^3/ul Absolute Basos (auto) 0 (0-0.2) 10^3/ul INR (Anticoag Therapy) 1.04 (0.89-1.11) APTT 30.5 (26.0-36.3) seconds Sodium 135 (133-145) mmol/L Potassium 3.8 (3.5-5.0) mmol/L Chloride 101 (101-111) mmol/L Carbon Dioxide 28 (22-32) mmol/L Anion Gap 6 (2-11) mmol/L BUN 17 (6-24) mg/dL Creatinine 0.69 (0.51-0.95) mg/dL Est GFR ( Amer) 110.2 (>60) Est GFR (Non-Af Amer) 85.7 (>60) BUN/Creatinine Ratio 24.6 H (8-20) Glucose 120 H (70-100) mg/dL Lactic Acid (0.5-2.0) mmol/L Calcium 9.0 (8.6-10.3) mg/dL Total Bilirubin 1.10 H (0.2-1.0) mg/dL AST 68 H (13-39) U/L ALT 20 (7-52) U/L Alkaline Phosphatase 314 H (34-104) U/L Troponin I 0.07 H* (<0.04) ng/mL C-Reactive Protein 144.46 H (< 5.00) mg/L Total Protein 5.1 L (6.4-8.9) g/dL Albumin 2.2 L (3.2-5.2) g/dL Globulin 2.9 (2-4) g/dL Albumin/Globulin Ratio 0.8 L (1-3) 10/24/16 Range/Units 06:11 WBC (3.5-10.8) 10^3/ul RBC (4.0-5.4) 10^6/ul Hgb (12.0-16.0) g/dl Hct (35-47) % MCV (80-97) fL MCH (27-31) pg MCHC (31-36) g/dl RDW (10.5-15) % Plt Count (150-450) 10^3/ul MPV (7.4-10.4) um3 Neut % (Auto) (38-83) % Lymph % (Auto) (25-47) % [place] % (Auto) (1-9) % Eos % (Auto) (0-6) % Baso % (Auto) (0-2) % Absolute Neuts (auto) (1.5-7.7) 10^3/ul Absolute Lymphs (auto) (1.0-4.8) 10^3/ul Absolute Monos (auto) (0-0.8) 10^3/ul Absolute Eos (auto) (0-0.6) 10^3/ul Absolute Basos (auto) (0-0.2) 10^3/ul INR (Anticoag Therapy) (0.89-1.11) APTT (26.0-36.3) seconds Sodium (133-145) mmol/L Potassium (3.5-5.0) mmol/L Chloride (101-111) mmol/L Carbon Dioxide (22-32) mmol/L Anion Gap (2-11) mmol/L BUN (6-24) mg/dL Creatinine (0.51-0.95) mg/dL Est GFR ( Amer) (>60) Est GFR (Non-Af Amer) (>60) BUN/Creatinine Ratio (8-20) Glucose (70-100) mg/dL Lactic Acid 2.0 (0.5-2.0) mmol/L Calcium (8.6-10.3) mg/dL Total Bilirubin (0.2-1.0) mg/dL AST (13-39) U/L ALT (7-52) U/L Alkaline Phosphatase (34-104) U/L Troponin I (<0.04) ng/mL C-Reactive Protein (< 5.00) mg/L Total Protein (6.4-8.9) g/dL Albumin (3.2-5.2) g/dL Globulin (2-4) g/dL Albumin/Globulin Ratio (1-3) Result Diagrams: 10/24/16 06:11 10/24/16 06:11 Lab Statement: Any lab studies that have been ordered have been reviewed, and results considered in the medical decision making process. - Radiology CXR Xray Interpretation: No Acute Changes - It appears the chest tube is not as deeply placed as in the August 2016 CXR Radiology Interpretation Completed By: ED Physician Chest Pain Course/Dx - Course Course Of Treatment: NO CRITICAL CARE TIME. DISPOSITION PENDING AT SHIFT CHANGE. - Diagnoses Provider Diagnoses: Chest pain, Troponin level elevated Discharge - Discharge Plan Condition: Stable Disposition: OTHER Discharge Disposition Comment: . Referrals: Jesse Dinh MD [Primary Care Provider] - The documentation as recorded by the Cathie burgos Rebecca accurately reflects the service I personally performed and the decisions made by me, Richard Fernandez MD.
[2016-10-24 07:45] LABS: Immature Granulocytes 16 % (0-9); Metamyelocytes % 6 % (0-2); Myelocytes % 1 % (0-1); Neutrophil % 67 % (38-83); Reactive Lymph % 1 % (0-6)
[2016-10-24 07:46] LABS: Polychromasia 1+
[2016-10-24] MEDS ORDERED: Morphine INJ* 4 MG/ML 1 ML SYRINGE IV ONE (08:00)
--- NOTE | 2016-10-24 08:23 | RAD ---
HISTORY: Chest pain, chest tube COMPARISONS: October 09, 2016, CT dated July 16, 2016 VIEWS:1: Single frontal portable view of the chest at 6:55 AM FINDINGS: LINES AND TUBES: A left-sided chest port is noted with the tip overlying the superior vena cava. A left-sided chest tube is noted. This has retracted compared to the previous examination. The side-port is external to the left hemithorax. CARDIOMEDIASTINAL SILHOUETTE: The cardiomediastinal silhouette is normal for portable technique. PLEURA: There is a stable left pleural effusion versus pleural thickening. There is no appreciable pneumothorax. LUNG PARENCHYMA: There is patchy alveolar opacification of left lung base ABDOMEN: The upper abdomen is clear. There is no subphrenic gas. 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 LINES AND TUBES ABOVE. THE LEFT-SIDED CHEST TUBE HAS RETRACTED. THE SIDE PORT IS NOW EXTERNAL TO THE LEFT HEMITHORAX. 2. LEFT PLEURAL EFFUSION, STABLE. NO APPRECIABLE PNEUMOTHORAX. 3. LEFT BASILAR ATELECTASIS VERSUS CONSOLIDATION
[2016-10-24] MEDS ORDERED: Cefepime(*) 2 GM in NS 0.9% 50 ML* 50 ML IVPB ONE (09:29)
[2016-10-24] MEDS ORDERED: Ciprofloxacin 400MG IVPREMIX(* 400 MG/200 ML BAG IVPB ONE (09:29)
[2016-10-24] MEDS ORDERED: NS 0.9% 50 ML* 50 ML ONE (09:41)
[2016-10-24] MEDS: Enoxaparin(*) 40 MG/0.4 ML SYR SUBCUT SCH (12:17)
[2016-10-24] MEDS: Morphine INJ* 4 MG/ML 1 ML SYRINGE IV PRN ×2 (12:57→19:56)
--- NOTE | 2016-10-24 15:24 | CONSULT ---
Consult Consult: Surgery Asked to evaluate a pt. regarding chest tube dislodging. Ms. Black is sleeping soundly, I did not awaken. According to her she was managing the tube without pain till 2 days ago. ~5 days ago she had some fibrin suctioned out of the tube in the office and since then there has been some more drainage including last night when there was about 310cc for 12 hours. The has also been noticing some more swelling in the left chest. Her recent hx includes a pleurodesis procedure on 09/30/16. As she is not currently in distress and the tube is draining will plan to leave current tube in place and defer to Dr. Pierson re: replacement of tube in the setting of prior pleurodesis. Nikki
--- NOTE | 2016-10-24 18:51 | HP ---
CC: Dr. Dinh * [facility] MEDICINE HISTORY AND PHYSICAL: DATE OF ADMISSION: 10/24/16 ATTENDING PHYSICIAN: Dr. Starr Artis * (dictation provided by Mirna Stevenson NP ) CHIEF COMPLAINT: Left-sided chest discomfort. HISTORY OF PRESENT ILLNESS: Ms. Black is a 66-year-old female with a past medical history of metastatic breast cancer with current malignant pleural effusion, status post chest tube placement on 09/30/16, who presents today to the hospital with concern for pain at the site of her chest tube. Ms. Black was originally diagnosed with breast cancer in 1998. At that time, she had chemotherapy, surgery, and radiation. In 2012, it was discovered that she had metastasis to her right hip and a partial hip arthroplasty was performed. The patient was resumed on chemotherapy at that time. She has had ongoing issues with anemia, thrombocytopenia, and now with pleural effusions, which started back in June of this year. She initially underwent multiple thoracentesis, but now has had a chest tube placed on 09/30/16. The patient states that initially on going home, she was feeling relatively well. However, over the past 24 hours, she developed significant pain at the site of the left chest tube. It radiates around to the center of her abdomen, at times it become progressively worse and now she is in excruciating pain with any movement. She believes there has been increased drainage from the tube and thinks that perhaps the drainage itself has become redder in color. She denies other complaint. She denies chest pain. She has had a small cough, but not unusual for her. She has had a bit of decreased appetite, but has been able to tolerate oral intake without nausea, vomiting, or abdominal pain. She has had a normal formed bowel movements. She denies any fever. She has had limited mobility recently and spends most of he time in bed. In the emergency room, Ms. Black had a chest tube which showed concern that possibly the side port of the tube was external to the left hemithorax. It did not show a significant increase in the left pleural effusion. Her troponin was mildly elevated to 0.07. She does have an elevated CRP to 144.46. Her WBC is normal at 7.0. PAST MEDICAL HISTORY: 1. Metastatic breast cancer with bone metastases and current malignant pleural effusion. 2. Anemia and thrombocytopenia secondary to cancer and chemotherapy. 3. Asthma. 4. Type 2 diabetes, currently diet controlled. 5. Hyperlipidemia. 6. Neuropathy. 7. Lymphedema. 8. History of lap cholecystectomy. 9. History of total hip arthroplasty on the right secondary to bone metastases. MEDICATIONS: 1. Tylenol p.r.n. 2. Salmeterol 50 mcg 1 puff inhaled b.i.d. p.r.n. 3. Levothyroxine 100 mcg p.o. q.a.m. 4. Ondansetron 4 mg p.o. q.4 hours p.r.n. ALLERGIES: To ALCOHOL, CAPECITABINE, DOCETAXEL, ETHANOL, FLUOROURACIL, NICKEL, SORBITAN, CAMPHOR, CARBOXYMETHYLCELLULOSE, MENTHOL, METHYL SALICYLATE, POTASSIUM DICHROMATE, YEW BUSHES, SUNSCREEN, SURGICAL TAPE, DEODORANT, SHOE DYE. FAMILY HISTORY: The patient reports her sister had breast cancer in her 40s, but was successfully treated with no further recurrence. She also has her mother's cousin who had breast cancer. SOCIAL HISTORY: No report of alcohol, tobacco, or drug use. The patient lives with her , who is the healthcare proxy. She has a daughter, Loreta, who is visiting from [place] and another daughter, who is a grad student in [place], and will be visiting for the summer as well. REVIEW OF SYSTEMS: A 14-point review of systems was completed with Ms. Black and all those not mentioned above were negative. PHYSICAL EXAMINATION GENERAL: Ms. Black is lying in the bed. She is in no acute distress. VITAL SIGNS: Temperature 97.3, heart rate 85, respiratory rate 14, O2 saturation 99% on room air, blood pressure 104/58. LUNGS: Clear to auscultation bilaterally with no accessory muscle use and good aeration. There is a chest tube present in the left side with serosanguineous drainage. No drainage noted from the site itself. HEART: S1, S2. No murmur, rub, or gallop, and regular. ABDOMEN: Soft, nontender, with bowel sounds positive x4. NEURO: She is alert, she is oriented x3. She moves all extremities equally. There is no facial asymmetry or focal weakness. Extraocular movements are intact. EXTREMITIES: No cyanosis. Positive for edema. SKIN: Intact. DIAGNOSTIC STUDIES/LAB DATA: WBC 7.0, hemoglobin 10.6, hematocrit 33, platelet count 71, band 9, percent neutrophil 84.2, nucleated RBCs 3. INR 1.04. Sodium 135, potassium 3.8, chloride 101, serum bicarbonate 28, BUN 17, creatinine 0.69, glucose 120. Total bilirubin 1.10, AST 68, ALT 20, alk phos 314. Troponin 0.07. CRP 144.46. Chest x-ray: "Lines and tubes as above. The left-sided chest tube has retracted. The side port is now external to the left hemithorax. Left pleural effusion, stable. No appreciable pneumothorax. Left basilar atelectasis versus consolidation." ASSESSMENT AND PLAN: Ms. Black is a 66-year-old female with a past medical history of breast cancer with metastases to bone, now with malignant pleural effusion, status post chest tube, currently undergoing chemotherapy, who presented to the hospital today with concern for pain at the site of her chest tube. Our plans are for observation in the hospital for the followin. Left-sided chest pain: My suspicion is that the patient's pain is related to malposition of her chest tube. Dr. West from surgical services has been consulted and will be seeing her shortly. If it is found that the chest tube is functioning properly and in the correct position and the patient still has the pain, further investigation will likely include a CTA of the chest to rule out pulmonary embolism given her very high risk for this with her history of cancer and her limited mobility. The patient has no overt evidence of infection , although she does have an elevated CRP and elevated bands and we should be vigilant for pneumonia as the possible cause as well. Furthermore, the patient has elevated troponin, I do not feel that this is likely cardiac in origin, but could be bilingual sales representative of pulmonary embolism. For now, our plans are to repeat troponins x2 and monitor the patient on the telemetry Unit. Again, further investigation will be undertaken if it is determined that the chest tube is correctly placed. 2. Elevated troponin: Again repeat x2 and monitor on telemetry. 3. History of cancer: The patient will be followed by Dr. Dinh and his team as of tomorrow. At this time, she is mildly anemic and mildly thrombocytopenic with normal white blood cell count, which has been her baseline. 4. Diabetes: The patient's blood glucose is mildly elevated on arrival. She is not on any medications at home. I do not plan to check blood glucoses based on her history. 5. Asthma: Stable, monitor. 6. DVT prophylaxis: With Lovenox. 7. Disposition: To telemetry Unit. 8. Code status: Full code. This was reviewed with the patient and her at the bedside today. TIME SPENT: Approximately 60 minutes was spent on the admission of this patient , more than half the time spent with the patient and her family at the bedside reviewing the events leading up to this hospitalization, performing the physical examination, and reviewing the plan of care. MIRNA STEVENSON NP [id number]/[facility]PS #: [id number] ADDENDUM: Plan to obtain CTA chest now to rule out pulmonary embolism in this patient with high risk for PE with history of cancer, chest pain, and newly elevated troponin. Patient has multiple drug allergies and will require pre- medication prior to administration of contrast dye. ZOILA
[2016-10-24] MEDS ORDERED: predniSONE TAB* 50 MG PO ONE (20:00)
[2016-10-24] MEDS: Magic M W2 Ben/Maal/Nyst/Lido* 240 ML MOUTHWASH (alt formulation) SWISH SPIT SCH (21:11)
[2016-10-25] MEDS: Ondansetron ODT TAB* 4 MG PO PRN ×3 (01:27→20:35)
[2016-10-25] MEDS: Morphine INJ* 4 MG/ML 1 ML SYRINGE IV PRN ×3 (01:28→20:50)
[2016-10-25] MEDS ORDERED: predniSONE TAB* 50 MG PO ONE ×2 (02:00→08:00)
[2016-10-25] MEDS: Levothyroxine TAB* 100 MCG TAB PO SCH (05:35)
[2016-10-25] MEDS ORDERED: diPHENhydraMINE IV* 50 MG/ML 1 ml VIAL (BENADRYL) IV ONE (08:00)
--- NOTE | 2016-10-25 09:02 | PN ---
Progress Note - Progress Note Date of Service: 10/25/16 Note: Surgery I discussed Ms. Black's situation with Dr. Pierson who requested a CT be done. I ordered. Nikki
[2016-10-25] MEDS ORDERED: Iodixanol* (CONTRAST) 320 MG/ML 100 ML SDV IV ONE (09:24)
--- NOTE | 2016-10-25 10:10 | RAD ---
HISTORY: Left-sided chest pain, history of cancer COMPARISONS: July 16, 2016 TECHNIQUE: Multiple contiguous axial CT scans of the chest were obtained after the administration of nonionic intravenous contrast, timed to the pulmonary arterial phase of contrast enhancement.. Coronal and sagittal multiplanar reformations are also submitted for review. FINDINGS: NECK AND THYROID: The lower neck and thyroid are unremarkable. CHEST WALL: There is no lower cervical, axillary, or supraclavicular lymphadenopathy by size criteria. A left-sided chest port is noted. There is postsurgical change to the left chest wall with dystrophic calcification. Surgical clips are noted in the left axilla HEART AND PERICARDIUM: The heart is unremarkable. AORTA AND PULMONARY VASCULATURE: There is no pulmonary arterial filling defect to suggest pulmonary embolism. There is no linear filling defect within the aorta to suggest aortic dissection. MEDIASTINUM: There is no mediastinal lymphadenopathy by size criteria. JENNIFER: There is no hilar lymphadenopathy by size criteria. AIRWAY AND ESOPHAGUS: The airway is unremarkable, without endobronchial filling defect. The esophagus is grossly normal. LUNG PARENCHYMA: There is interlobular septal thickening of the left lung PLEURA: There is left pleural thickening with a small left pleural effusion. There is small amount of pleural gas. A left-sided chest tube is noted. The side port of the chest tube is beyond the margins of the osseous hemithorax. There is a small right pleural effusion UPPER ABDOMEN: There are multiple low-attenuation hepatic parenchymal lesions. Direct comparison is limited secondary to technique and the number of lesions; however, the appearance is similar to the previous CT examination. BONES AND SOFT TISSUES: Again noted is diffuse osteoblastic metastatic disease. This is similar to the previous examination. There is a small amount of subcutaneous emphysema. OTHER: None. IMPRESSION: 1. NO PULMONARY ARTERIAL FILLING DEFECT TO SUGGEST PULMONARY EMBOLISM. 2. SMALL BILATERAL PLEURAL EFFUSIONS. THERE IS A SMALL AMOUNT OF PLEURAL GAS ON THE LEFT. 3. LEFT-SIDED CHEST TUBE IS NOTED. THE SIDE-PORT IS BEYOND THE MARGINS OF THE OSSEOUS HEMITHORAX. 4. THERE IS INTERLOBULAR SEPTAL THICKENING OF THE LEFT LUNG. THIS MAY REPRESENT ASYMMETRIC PULMONARY EDEMA OR LYMPHATIC OBSTRUCTION. 5. AGAIN NOTED IS HEPATIC AND OSTEOBLASTIC METASTATIC DISEASE
[2016-10-25] MEDS: Magic M W2 Ben/Maal/Nyst/Lido* 240 ML MOUTHWASH (alt formulation) SWISH SPIT SCH ×4 (11:22→20:39)
[2016-10-25] MEDS: Enoxaparin(*) 40 MG/0.4 ML SYR SUBCUT SCH (11:23)
[2016-10-26] MEDS: Morphine INJ* 4 MG/ML 1 ML SYRINGE IV PRN ×3 (04:11→15:01)
[2016-10-26] MEDS: Ondansetron ODT TAB* 4 MG PO PRN ×3 (04:11→15:01)
[2016-10-26] MEDS: Levothyroxine TAB* 100 MCG TAB PO SCH (05:51)
[2016-10-26 06:11] LABS: Hematocrit 20 % (35-47); Mean Corpuscular HGB Conc 33 g/dl (31-36); Mean Corpuscular Hemoglobin 32 pg (27-31); Mean Corpuscular Volume 97 fL (80-97); Mean Platelet Volume 9 um3 (7.4-10.4); Red Blood Count 2.08 10^6/ul (4.0-5.4); Red Cell Distribution Width 20 % (10.5-15); White Blood Count 11.9 10^3/ul (3.5-10.8)
[2016-10-26 06:25] LABS: Comments Flag Yes
[2016-10-26 06:26] LABS: Add Diff/Slide Review? Slide Review Added; Hemoglobin 6.6 g/dl (12.0-16.0)
[2016-10-26 06:27] LABS: BUN/Creatinine Ratio 30.9 (8-20); Calcium 8.8 mg/dL (8.6-10.3); EGFR African American 77.1 (>60); Potassium 4.4 mmol/L (3.5-5.0)
--- NOTE | 2016-10-26 06:40 | PN ---
Progress Note - Progress Note Date of Service: 10/26/16 Note: Called for significant drop in H/H. 2 units of PRBCs ordered. D/C lovenox. SCDs ordered. Hemoccult stool ordered.
[2016-10-26 07:21] LABS: Hypochromasia 2+; Immature Granulocytes 35 % (0-9); Metamyelocytes % 6 % (0-2); Myelocytes % 9 % (0-1); Neutrophil % 50 % (38-83); Polychromasia 1+; Promyelocytes % 1 %
[2016-10-26 07:22] LABS: Microcytosis 1+
[2016-10-26] MEDS: Magic M W2 Ben/Maal/Nyst/Lido* 240 ML MOUTHWASH (alt formulation) SWISH SPIT SCH ×4 (10:10→19:13)
--- NOTE | 2016-10-26 13:17 | PN ---
Progress Note - Progress Note Date of Service: 10/26/16 Note: Having pain at chest tube site. Still moderately large bloody drainage via chest tube. (Tube is partly out of the chest, though the most proximal hole is still under the skin.) Chest CT reviewed, given nature of her metastatic disease, this may be as good as we can get it. Will probably need to bite the bullet and take tube out relatively soon. Hopefully the pleurodesis has caused enough fibrosis that she won't be able to collapse.
--- NOTE | 2016-10-26 16:02 | PN ---
Progress Note - Progress Note Date of Service: 10/26/16 Note: I was asked by Dr. Pierson to remove chest tube this afternoon. Chest tube has been partially dislodged for quiet some time now. Patient has be complaining from intermittent pain at chest tube site with deep inspiration of movement or the trunk. I discussed removing chest tube with the patient, knowing the possibilities of needing a new chest tube placed in the near future. She understood and agreed to proceed. Chest tube removed with ease. Vaseline gauze and sterile dressing applied and taped securely. Patient tolerated procedure well. Change dressing as needed if soiled or saturated.
[2016-10-27] MEDS: Levothyroxine TAB* 100 MCG TAB PO SCH (04:42)
[2016-10-27] MEDS: Magic M W2 Ben/Maal/Nyst/Lido* 240 ML MOUTHWASH (alt formulation) SWISH SPIT SCH ×4 (10:16→21:57)
--- NOTE | 2016-10-27 10:35 | PN ---
Progress Note - Progress Note Date of Service: 10/27/16 SOAP: Subjective: Feels tired overall, but no other complaints. Denies SOB, wheezing or chest pain. Objective: Awake and alert, in NAD VSS, afebrile Lungs clear to auscultation, diminished breath sounds at left base. Chest wall with intact and dry dressing at left CT site. No leakage noted. Assessment: Improving, s/p chest tube removal due to L pleural effusion. Plan: She seems to be doing better overall. Hopefully chest tube incision site continues to heal and seal completely. Will f/u during this admission.
[2016-10-27] MEDS: Docusate CAP* 100 MG PO PRN (21:57)
[2016-10-28] MEDS: Levothyroxine TAB* 100 MCG TAB PO SCH (04:59)
[2016-10-28 05:16] LABS: Hematocrit 21 % (35-47); Hemoglobin 7.1 g/dl (12.0-16.0); Mean Corpuscular HGB Conc 34 g/dl (31-36); Mean Corpuscular Hemoglobin 32 pg (27-31); Mean Corpuscular Volume 95 fL (80-97); Mean Platelet Volume 9 um3 (7.4-10.4); Red Blood Count 2.23 10^6/ul (4.0-5.4); Red Cell Distribution Width 18 % (10.5-15); White Blood Count 7.3 10^3/ul (3.5-10.8)
[2016-10-28 05:17] LABS: Add Diff/Slide Review? Slide Review Added; Comments Flag Yes
[2016-10-28 05:38] LABS: Eosinophils % 1 % (0-6); Hypochromasia 1+; Immature Granulocytes 26 % (0-9); Macrocytosis 1+; Metamyelocytes % 1 % (0-2); Microcytosis 1+; Neutrophil % 58 % (38-83); Polychromasia 1+
[2016-10-28 06:00] LABS: BUN/Creatinine Ratio 29.2 (8-20); EGFR Non-African American 91.8 (>60); Globulin 2.1 g/dL (2-4); Potassium 3.8 mmol/L (3.5-5.0); Total Bilirubin 1.1 mg/dL (0.2-1.0); Total Protein 4.1 g/dL (6.4-8.9)
[2016-10-28] MEDS: Docusate CAP* 100 MG PO PRN (09:10)
[2016-10-28] MEDS: Magic M W2 Ben/Maal/Nyst/Lido* 240 ML MOUTHWASH (alt formulation) SWISH SPIT SCH ×4 (09:10→19:31)
[2016-10-28] MEDS ORDERED: Polyethylene Glycol 3350* 17 GM PACKET ONE (11:49)
[2016-10-28] MEDS: Polyethylene Glycol 3350* 17 GM PACKET PO SCH ×2 (11:56→19:30)
[2016-10-28] MEDS ORDERED: diPHENhydraMINE PO* 25 MG PO ONE (12:30)
[2016-10-28] MEDS ORDERED: Acetaminophen TAB* 325 MG PO ONE (12:30)
--- NOTE | 2016-10-28 13:18 | PN ---
Progress Note - Progress Note Date of Service: 10/28/16 SOAP: Subjective:eating lunch,denies SOB or chest pain [] Objective:afeb,VSS;lungs:mild crackles on left,clear on right;exit site of previous left chest tube clean,no erythema,scant drainage on dsg;dsg reapplied with vaseline gauze,4x4's and paper tape [] Assessment:comfortable;hopes to go home tomorrow [] Plan:per ONCO transfuse 1u prbcs today [place] will juan chest dsg tomorrow []
[2016-10-29] MEDS: Levothyroxine TAB* 100 MCG TAB PO SCH (04:54)
[2016-10-29] MEDS: Polyethylene Glycol 3350* 17 GM PACKET PO SCH ×2 (07:55→20:11)
[2016-10-29] MEDS: Acetaminophen TAB* 325 MG PO PRN (07:57)
[2016-10-29] MEDS: Magic M W2 Ben/Maal/Nyst/Lido* 240 ML MOUTHWASH (alt formulation) SWISH SPIT SCH ×4 (07:58→20:09)
[2016-10-29 09:53] LABS: Hematocrit 25 % (35-47); Hemoglobin 8.3 g/dl (12.0-16.0); Mean Corpuscular HGB Conc 33 g/dl (31-36); Mean Corpuscular Hemoglobin 31 pg (27-31); Mean Corpuscular Volume 95 fL (80-97); Mean Platelet Volume 8 um3 (7.4-10.4); Red Blood Count 2.66 10^6/ul (4.0-5.4); Red Cell Distribution Width 18 % (10.5-15); White Blood Count 7.3 10^3/ul (3.5-10.8)
[2016-10-29 09:56] LABS: Add Diff/Slide Review? Slide Review Added; Comments Flag Yes
[2016-10-29 10:10] LABS: Hypochromasia 1+; Immature Granulocytes 30 % (0-9); Metamyelocytes % 3 % (0-2); Myelocytes % 3 % (0-1); Neutrophil % 54 % (38-83); Polychromasia 2+
--- NOTE | 2016-10-29 11:04 | PN ---
Progress Note - Progress Note Date of Service: 10/29/16 Note: Surgery Progress: S: no reported problems re: chest tube site. Has had a persistent nosebleed. Not sure if she's going home today. O: chest tube site clean w/ min serous drainage, not even soaked through one 4x4. A/P: s/p removal of chest tube, doing well. Dressing changed (dry 4x4s) and instructed. No need for surgical f/u.
[2016-10-29] MEDS: oxyCODONE TAB* 5 MG TAB PO PRN (22:30)
[2016-10-29 23:52] LABS: Mean Platelet Volume 8 um3 (7.4-10.4)
[2016-10-29 23:53] LABS: Comments Flag Yes
[2016-10-30] MEDS: oxyCODONE TAB* 5 MG TAB PO PRN ×2 (05:17→14:43)
[2016-10-30] MEDS: Acetaminophen TAB* 325 MG PO PRN (05:17)
[2016-10-30] MEDS: Levothyroxine TAB* 100 MCG TAB PO SCH (05:17)
[2016-10-30 05:45] LABS: Add Diff/Slide Review? Slide Review Added; Comments Flag Yes; Hematocrit 24 % (35-47); Hemoglobin 8.1 g/dl (12.0-16.0); Mean Corpuscular HGB Conc 34 g/dl (31-36); Mean Corpuscular Hemoglobin 32 pg (27-31); Mean Corpuscular Volume 95 fL (80-97); Mean Platelet Volume 7 um3 (7.4-10.4); Red Cell Distribution Width 18 % (10.5-15); White Blood Count 6.9 10^3/ul (3.5-10.8)
[2016-10-30 07:01] LABS: Hypochromasia 1+; Immature Granulocytes 42 % (0-9); Macrocytosis 1+; Metamyelocytes % 6 % (0-2); Microcytosis 1+; Myelocytes % 4 % (0-1); Neutrophil % 38 % (38-83); Polychromasia 1+
--- NOTE | 2016-10-30 09:06 | PN ---
Progress Note - Progress Note Date of Service: 10/30/16 SOAP: Subjective: []Mostly better. Has continued bloody nose, comes and goes. Had platlet transfusion but did not help much. Breathing has been fine when she is walking. Knee pain but has been long standing. No fever or chills. Chest pain better with chest tube out. Acetaminophen (Tylenol Tab*) 650 mg PO Q6H PRN PRN Reason: PAIN Last Admin: 10/30/16 05:17 Dose: 650 mg Docusate Sodium (Colace Cap*) 100 mg PO BID PRN PRN Reason: CONSTIPATION Last Admin: 10/28/16 09:10 Dose: 100 mg Levothyroxine Sodium (Synthroid Tab*) 100 mcg PO QAM@0600 [facility] Last Admin: 10/30/16 05:17 Dose: 100 mcg Morphine Sulfate (Morphine Inj (Syringe)*) 4 mg IV Q4H PRN PRN Reason: PAIN Last Admin: 10/26/16 15:01 Dose: 4 mg Multi-Ingredient Mouthwash/Gargle (Magic M W2 Zackary/Maal/Nyst/Lido*) 10 ml SWISH SPIT QID [facility] Last Admin: 10/29/16 20:09 Dose: 10 ml Ondansetron HCl (Zofran Odt Tab*) 4 mg PO Q4HR PRN PRN Reason: NAUSEA Last Admin: 10/26/16 15:01 Dose: 4 mg Oxycodone HCl (Roxycodone Tab*) 5 mg PO Q6H PRN PRN Reason: PAIN Last Admin: 10/30/16 05:17 Dose: 5 mg Polyethylene Glycol/Electrolytes (Miralax*) 17 gm PO 0800,2100 [facility] Last Admin: 10/29/16 20:11 Dose: 17 gm Objective: [] Vital Signs Temp Pulse Resp BP Pulse Ox 97.8 F 93 16 104/60 90 10/30/16 07:57 10/30/16 07:57 10/30/16 07:57 10/30/16 07:57 10/30/16 07:57 HEENT- Blood nose, right. No oral lesions. No neck LAD and no JVD Chest with venous distension. Decreased BS on Left, Right is CTA RRR S1S2 Some RUQ tenderness, good BS +1 Edema both ankles CTA 10/25/16. From June effusion improved, diffuse bone disease and progression of liver disease. Assessment: []66 year old with MBC on Her-2 maddi therapy and Carboplatin. Treated 10/15 and admitted for pain at chest tube, tube now removed. Question of progression of underlying disease. Plan: []1. Pleural effusion. Breathing stable and pain improved after CT removal 2. Pancytopenia. From prior chemotherapy or marrow infiltration. I suspect the latter. No additional platelet transfusions, given epistaxis will give one unit PRBC. 3. Disp. Would like her to go home today, she will discuss with her family, if not ready for d/c Tuesday possible NH with rehab.
[2016-10-30] MEDS: Polyethylene Glycol 3350* 17 GM PACKET PO SCH (09:15)
[2016-10-30] MEDS: Magic M W2 Ben/Maal/Nyst/Lido* 240 ML MOUTHWASH (alt formulation) SWISH SPIT SCH (09:15)
[2016-10-30] MEDS ORDERED: Acetaminophen TAB* 325 MG PO ONE (09:23)
[2016-10-30 14:06] VITALS: BP 103/56
--- NOTE | 2016-10-30 16:11 | DS ---
CC: Dr. Dinh * DISCHARGE SUMMARY: DATE OF ADMISSION: 10/25/16 DATE OF DISCHARGE: 10/30/16 DISCHARGE DIAGNOSES: 1. Pleural effusion. 2. Breast cancer. 3. Pancytopenia secondary to chemotherapy and breast cancer. 4. Epistaxis. 5. Arthritis. PROCEDURE: Removal of chest tube. HOSPITAL COURSE: Ms. Black had a chest tube placed in September for refractory pleural effusion. That was draining well and remained in place on discharge from her September hospitalization. She continued on chemotherapy with carboplatin and Herceptin and Perjeta. She did not receive carboplatin on 10/15/16, but did receive dual HER-2/maddi agents. Approximately 2 days prior to admission, she developed pain and bloody discharge from the chest tube. On presentation, it was found that it was partly dislodged. CTA showed marked reduction in the prior pleural effusion. The chest tube was removed on 10/25/16 and she has done relatively well since that time. She has been walking around during her hospitalization without increasing shortness of breath. Pain in the chest tube site has largely subsided. She continues to have general weakness, fairly severe pain in the knee has limited her mobility, and persistent epistaxis. She has had CBC showing pancytopenia including hemoglobin between 7 and 8, which is a little below her baseline, platelets around 30,000, and a normal white count. She had a platelet transfusion yesterday without significant change in her platelet count. She has been eating reasonably well. No fevers or chills. Bowels have been moving with the help of MiraLAX and senna. Plan will be 1 unit of packed red blood cells today given her hemoglobin of 8.1 and then discharge home. I suspect the epistaxis will continue. Pancytopenia likely from bone marrow infiltration of her breast cancer. 1. Discharge today with continuation of her home medications including hydrocodone and Tylenol for her pain. 2. No additional platelet transfusion, 1 unit packed red blood cells today. 3. We will follow up with Dr. Dinh for CBC early next week and transfuse as needed. Continue chemotherapy, which will be due on 11/05/16. DISCHARGE MEDICATIONS: 1. Levothyroxine 100 mcg daily. 2. Ondansetron 4 mg q.6 p.r.n. 3. Colace 1 tab b.i.d. 4. Hydrocodone/acetaminophen 5/325 one tab q.6 p.r.n., given 60 on 10/15/16. 5. She takes multiple supplements, which we will continue. 6. Serevent Diskus 1 inhalation b.i.d. She had been taking Advil at home, I recommend she stop taking it because of the nosebleed and she has been on iron pills and recommend she stop iron pills as well. As stated above, followup will be early in the week for a blood count and late in the week for chemotherapy. [id number]/[facility] #: [id number] MTDD
== END 2016-10-30 16:25 | disposition home or self-care (01) | DRG 813 ==
LOC: ED 05:32 → MEDTELE 10:12 → OBSVTOIN 10-25 13:38
PROVIDERS: ADMIT Internal Medicine; ATTEND Internal Medicine Hematology & Oncology
PROC: 0WP8X0Z Removal of Drainage Device from Chest Wall, External Approach (ICD-10-PCS; principal; 2016-10-29)
PROC: 30233N1 Transfusion of Nonautologous Red Blood Cells into Peripheral Vein, Percutaneous Approach (ICD-10-PCS; 2016-10-29)
PROC: 30233R1 Transfusion of Nonautologous Platelets into Peripheral Vein, Percutaneous Approach (ICD-10-PCS; 2016-10-29)
DX: T85.628A Displacement of other specified internal prosthetic devices, implants and grafts, initial encounter (principal); D61.810 Antineoplastic chemotherapy induced pancytopenia; J91.0 Malignant pleural effusion; C79.51 Secondary malignant neoplasm of bone; C78.7 Secondary malignant neoplasm of liver and intrahepatic bile duct; E11.40 Type 2 diabetes mellitus with diabetic neuropathy, unspecified; D69.6 Thrombocytopenia, unspecified; C79.52 Secondary malignant neoplasm of bone marrow; E78.00 Pure hypercholesterolemia, unspecified; J45.909 Unspecified asthma, uncomplicated; M17.0 Bilateral primary osteoarthritis of knee; Z96.641 Presence of right artificial hip joint; Y82.8 Other medical devices associated with adverse incidents; R04.0 Epistaxis; R74.8 Abnormal levels of other serum enzymes; D64.9 Anemia, unspecified; K59.00 Constipation, unspecified; Y92.9 Unspecified place or not applicable; Z88.8 Allergy status to other drugs, medicaments and biological substances; Z91.048 Other nonmedicinal substance allergy status; Z91.09 Other allergy status, other than to drugs and biological substances; Z92.3 Personal history of irradiation; Z90.12 Acquired absence of left breast and nipple; Z88.4 Allergy status to anesthetic agent; Z85.3 Personal history of malignant neoplasm of breast; Z90.49 Acquired absence of other specified parts of digestive tract; Z83.3 Family history of diabetes mellitus; Z80.3 Family history of malignant neoplasm of breast
CPT/HCPCS: 36415; 71010; 71275; 80048; 80053; 83605; 84484; 85025; 85049; 85610; 85730; 86140; 86850; 86900; 86901; 86922; 93005; 94760; 99232; A9270-GY; G0378; J0692; J0744; J1200; J1642; J1650; J2270; J2405; J3010; J7512; P9016; P9035; P9040; Q9967

== ENCOUNTER 2016-11-03 10:54 | Inpatient (IN) | payer BC ==
[2016-11-03] MEDS ORDERED: NS 0.9% 1000 ML* 1,000 ML IV ONE (11:34)
[2016-11-03] MEDS ORDERED: Ondansetron INJ* 2 MG/ML VIAL IV ONE (11:37)
[2016-11-03] MEDS ORDERED: Morphine INJ* 4 MG/ML 1 ML SYRINGE IV ONE (11:37)
[2016-11-03] MEDS ORDERED: Cefepime(*) 1 GM in NS 0.9% 50 ML* 50 ML IVPB ONE (11:37)
[2016-11-03] MEDS ORDERED: NS 0.9% 50 ML* 0 ML ONE (11:42)
[2016-11-03 11:56] LABS: Hematocrit 25 % (35-47); Hemoglobin 8.1 g/dl (12.0-16.0); Mean Corpuscular HGB Conc 32 g/dl (31-36); Mean Corpuscular Hemoglobin 31 pg (27-31); Mean Corpuscular Volume 95 fL (80-97); Red Blood Count 2.62 10^6/ul (4.0-5.4); Red Cell Distribution Width 20 % (10.5-15); White Blood Count 13.3 10^3/ul (3.5-10.8)
[2016-11-03 12:02] LABS: Albumin 1.8 g/dL (3.2-5.2); BUN/Creatinine Ratio 36.9 (8-20); C Reactive Protein 380.33 mg/L (< 5.00); Calcium 7.9 mg/dL (8.6-10.3); EGFR African American 69.4 (>60); EGFR Non-African American 53.9 (>60); Globulin 3.2 g/dL (2-4); Potassium 4.8 mmol/L (3.5-5.0)
[2016-11-03 12:05] LABS: Troponin I 0.53 ng/mL (<0.04)
[2016-11-03 12:07] LABS: Add Diff/Slide Review? Slide Review Added; Comments Flag Yes
--- NOTE | 2016-11-03 12:12 | RAD ---
INDICATION: Short of breath COMPARISON: Chest x-ray October 24, 2016 TECHNIQUE: An AP portable view obtained at 1144 hours is submitted. FINDINGS: Bones/Soft Tissues: There is no acute bony change. There are diffuse sclerotic metastasis. There is left chest wall/axillary surgery. There is a left-sided Lpnzas-h-Uaag catheter terminating in the superior vena cava. Cardiomediastinal: The heart is normal in size.. Lungs: There is diffuse progressive interstitial change. This could be related to pulmonary edema or lymphangitic spread of tumor. There is mild consolidative change in the medial left lung base. There is underlying chronic interstitial changes well. There is a presumed small left-sided hydropneumothorax. Pleura: Small to moderate left-sided pleural effusion. Probable small right-sided pleural effusion. Other: None IMPRESSION: DIFFUSE INCREASE IN INTERSTITIAL MARKINGS IN THE INTERVAL. SUSPECT SMALL LEFT-SIDED HYDROPNEUMOTHORAX. LEFT BASILAR ABNORMALITIES.
[2016-11-03] MEDS ORDERED: Morphine INJ* 4 MG/ML 1 ML SYRINGE IV PRN (13:22)
[2016-11-03] MEDS ORDERED: Acetaminophen TAB* 325 MG PO PRN (13:24)
[2016-11-03] MEDS ORDERED: NS 0.9% 1000 ML* 1,000 ML IV SCH (13:30)
[2016-11-03] MEDS ORDERED: LORazepam INJ* 2 MG/ML 1 ML VIAL IV PUSH PRN (13:32)
[2016-11-03] MEDS ORDERED: Ondansetron INJ* 2 MG/ML VIAL IV PRN (13:32)
[2016-11-03 13:51] LABS: Immature Granulocytes 20 % (0-9); Metamyelocytes % 1 % (0-2); Neutrophil % 75 % (38-83)
[2016-11-03 13:52] LABS: Polychromasia 1+; Toxic Granulation 1+
[2016-11-03 13:53] LABS: Mean Platelet Volume 8 um3 (7.4-10.4)
--- NOTE | 2016-11-03 15:10 | ED ---
Evan Quijano Alfonso, scribed for Ha Watkins MD on 11/03/16 at 1139 . Complex/Multi-Sys Presentation - HPI Summary HPI Summary: This patient is a 66 year old F [facility] accompanied by and two daughters with a chief complaint of SOB since earlier today. Pt rates the pain 10/10 in severity. Symptoms aggravated and alleviated by nothing. Pt reports fever, CP, body aches, weakness, and confusion. Her chest tube was removed one week ago because it was displaced. Patient has breast and bone cancers for which she is being treated by Dr. Dinh. - History Of Current Complaint Chief Complaint: EDShortnessOfBreath Time Seen by Provider: 11/03/16 11:23 Hx Obtained From: Patient Onset/Duration: Sudden Onset, Lasting Hours - Earlier today, Still Present Timing: Constant Severity Currently: Severe Severity Initially: Severe Aggravating Factor(s): Nothing Alleviating Factor(s): Nothing Associated Signs And Symptoms: Positive: Other - Positive fever, CP, body aches , weakness, and confusion Related History: Recent Illness - Breast and bone cancers - Allergies/Home Medications Allergies/Adverse Reactions: Allergies Allergy/AdvReac Type Severity Reaction Status Date / Time Alcohol [From Taxotere] Allergy Severe Anaphylatic Verified 10/24/16 05:41 Shock Capecitabine [From Xeloda] Allergy Severe SEE BELOW Verified 10/24/16 05:41 Docetaxel [From Taxotere] Allergy Severe Anaphylatic Verified 10/24/16 05:41 Shock Ethanol [From Taxotere] Allergy Severe Anaphylatic Verified 10/24/16 05:41 Shock Fluorouracil Allergy Severe See Comment Verified 10/24/16 05:41 Nickel Allergy Severe Rash Verified 10/24/16 05:41 Sorbitan [From Taxotere] Allergy Severe Anaphylatic Verified 10/24/16 05:41 Shock Camphor [From BenGay Patch] Allergy Intermediate See Comment Verified 10/24/16 05:41 Carboxymethylcellulose Allergy Intermediate See Comment Verified 10/24/16 05:41 [From BenGay Patch] Menthol [From BenGay Patch] Allergy Intermediate See Comment Verified 10/24/16 05:41 Methyl Salicylate Allergy Intermediate See Comment Verified 10/24/16 05:41 [From BenGay Patch] Potassium Dichromate Allergy Intermediate Rash Verified 10/24/16 05:41 yew bushes Allergy Severe anaphylacti Uncoded 10/24/16 05:41 c sunscreen Allergy Intermediate Rash Uncoded 10/24/16 05:41 surgical tape Allergy Intermediate Rash/burn Uncoded 10/24/16 05:41 deoderant Allergy Mild Rash Uncoded 10/24/16 05:41 shoe dye Allergy Mild Rash Uncoded 10/24/16 05:41 Home Medications: Home Medications Acetaminophen TAB* [Tylenol TAB*] 650 mg PO DAILY PRN 11/03/16 [History Confirmed 11/03/16] HYDROcodone/ACETAMIN 5-325 MG* [[place] 5-325 TAB*] 1 tab PO Q6H MDD 4 tabs [History Confirmed 11/03/16] Levothyroxine TAB* [Synthroid 100 MCG TAB*] 100 mcg PO 0600 11/03/16 [History Confirmed 11/03/16] Salmeterol DISKUS (NF) [Serevent Diskus (NF)] 1 puff INH BID 11/03/16 [History Confirmed 11/03/16] PMH/Surg Hx/FS Hx/Imm Hx Endocrine/Hematology History: Reports: Hx Blood Disorders, Hx Diabetes - NO MEDS : TYPE 2, Hx Thyroid Disease, Hx Anemia - 05/28/2013 Denies: Hx Systemic Lupus Erythematosus Cardiovascular History: Reports: Hx Hypercholesterolemia Denies: Hx Congestive Heart Failure, Hx Hypertension, Hx Pacemaker/ICD Respiratory History: Reports: Hx Asthma - PT STATES ASTHMATIC RESPONSE TO RECENT CHEMO TREATMENT, Other Respiratory Problems/Disorders - pleural effusion left lung History: Denies: Hx Renal Disease Musculoskeletal History: Reports: Hx Arthritis - bilateral knees, Other Musculoskeletal History - ,HAD HIP REPLACED. MET. BREAST CA. Denies: Hx Rheumatoid Arthritis Sensory History: Reports: Hx Contacts or Glasses Denies: Hx Hearing Aid Opthamlomology History: Reports: Hx Contacts or Glasses Neurological History: Reports: Hx Nerve Disease - neuropathy left hand , right side of face, right foot Psychiatric History: Denies: Hx Panic Disorder - Cancer History Cancer Type, Location and Year: breast ca with bone mets Hx Chemotherapy: Yes - 11-14-15 Hx Radiation Therapy: Yes Hx Palliative Cancer Treatment: No - Surgical History Surgery Procedure, Year, and Place: WISDOM TEETH REMOVAL,1984 & 1986 X2,[facility] TUBAL,LEFT MASTECTOMY 1998,LAPAROSCOPIC GALLBLADDER 2001;[facility] HIP REPLACEMENT RIGHT 07/2012, [facility] SIDE PORT PLACEMENT 04/2014, right sided port placement 06/29 removed 05/02 Hx Anesthesia Reactions: Yes - EPIDURALS DOES NOT WORK - Immunization History Date of Tetanus Vaccine: unk Date of Influenza Vaccine: utd Infectious Disease History: Denies: Hx Clostridium Difficile, Traveled Outside the [place] in Last 30 Days - Family History Known Family History: Positive: Diabetes, Other - BREAST CA - Social History Alcohol Use: None Substance Use Type: Reports: None Smoking Status (MU): Never Smoked Tobacco Have You Smoked in the Last Year: No Review of Systems Positive: Fever Positive: Chest Pain Positive: Shortness Of Breath Positive: Other - Positive body aches Neurological: Other - Positive weakness, and confusion All Other Systems Reviewed And Are Negative: Yes Physical Exam - Summary Physical Exam Summary: VITAL SIGNS: Reviewed. GENERAL: Patient is ill looking female with lethargy and confusion HEAD AND FACE: No signs of trauma. EYES: PERRLA, EOMI x 2, No injected conjunctiva, no nystagmus. EARS: Hearing grossly intact. Ear canals and tympanic membranes are within normal limits. MOUTH: Dry oral mucosa. NECK: Supple, trachea is midline, no adenopathy, no JVD, no carotid bruit, no c- spine tenderness, neck with full ROM. CHEST: Symmetric, no tenderness at palpation LUNGS: Decreased breath sound in the Right lung. CVS: Regular rate and rhythm, S1 and S2 present, no murmurs or gallops appreciated. ABDOMEN: Soft, non-tender. Bowel sounds are normal. EXTREMITIES: 1 plus edema NEURO: Alert but confused. No acute neurological deficits. SKIN: Dry and warm Triage Information Reviewed: Yes Vital Signs On Initial Exam: Initial Vitals Temp Pulse Resp BP Pulse Ox 99.9 F 123 24 107/63 94 11/03/16 11:04 11/03/16 11:04 11/03/16 11:04 11/03/16 11:04 11/03/16 11:04 Vital Signs Reviewed: Yes Diagnostics - Vital Signs Vital Signs Temp Pulse Resp BP Pulse Ox 11/03/16 11:04 99.9 F 123 24 107/63 94 - Laboratory Result Diagrams: 11/03/16 11:25 11/03/16 11:25 Lab Statement: Any lab studies that have been ordered have been reviewed, and results considered in the medical decision making process. - Radiology CXR Radiology Interpretation Completed By: Radiologist - DIFFUSE INCREASE IN INTERSTITIAL MARKINGS IN THE INTERVAL. SUSPECT SMALL LEFT-SIDED HYDROPNEUMOTHORAX. LEFT BASILAR ABNORMALITIES. - EKG 1139 Cardiac Rate: Tachycardia - BPM 119 EKG Rhythm: Sinus Tachycardia EKG Interpretation: No ST elevation Complex Multi-Symp Course/Dx Course Of Treatment: This patient is a 66 year old F [facility] accompanied by and two daughters with a chief complaint of SOB since earlier today. Pt rates the pain 10/10 in severity. Symptoms aggravated and alleviated by nothing. Pt reports fever, CP, body aches, weakness, and confusion. Her chest tube was removed one week ago because it was displaced. Patient has breast and bone cancers for which she is being treated by Dr. Dinh. Assessment/Plan: Test results reveal WBC of 13.3, chronic anemia, sodium of 130 , BUN of 38, creatinine of 1.03, lactic acid of 2.3, troponin of 0.05, and CRP of 380. The CXR reveals DIFFUSE INCREASE IN INTERSTITIAL MARKINGS IN THE INTERVAL. SUSPECT SMALL LEFT-SIDED HYDROPNEUMOTHORAX. LEFT BASILAR ABNORMALITIES. I discussed the findings and test results with Dr. Dinh and he suggests giving Cefepime 2 gram by IV since the patient seems to be septic. Patient was also given morphine and Zofran for the nausea. Patient given IV fluid since she seems to be dehydrated. At this point, Dr. Dinh accepted the patient for admission for further work up and management. Patient is lethargic and critical. - Diagnoses Differential Diagnoses/HQI/PQRI: Other - Pneumonia, sepsis, pleural effusion Provider Diagnoses: Sepsis, Pneumonia, Thrombocytopenia, Mental status change - Physician Notifications Discussed Care Of Patient With: Jesse Dinh Time Discussed With Above Provider: 11:36 Instructed by Provider To: Other - Consulted Dr. Dinh (oncologist) at 1136 and he requested to know the lab results once they came in. Consulted Dr. Dinh, again at 1225, who agrees to admit the patient under their care. Discharge - Discharge Plan Condition: Fair Disposition: ADMITTED TO [facility] The documentation as recorded by the Evan burgos Alfonso accurately reflects the service I personally performed and the decisions made by me, Ha Watkins MD.
--- NOTE | 2016-11-03 16:44 | PN ---
Progress Note - Progress Note Date of Service: 11/03/16 SOAP: Follow-up Please see admission note for full H&P and exam. Pt. now in room on med unit, resting comfortably with family at side, moaning occasionally with mildly labored breathing. Dr. Garcia in to consult re: palliative/hospice. Visited with family to f/u on repeat troponin revealing elevation and likely confirming cardiac damage (again reviewed likely demand r/t ). Discussed rising troponin may be prognostic and reviewed guarded situation. Family remain in agreement with current plan and deny questions at this time. With frequent repositioning for skin integrity will increase morphine overnight to [id number]. FU pt. condition in AM to determine further interventions. []
[2016-11-03] MEDS ORDERED: Atropine 1% (ORAL/SL)* 15 ML BTL SL PRN (16:56)
[2016-11-03] MEDS: Morphine INJ* 4 MG/ML 1 ML SYRINGE IV PRN ×2 (17:09→22:58)
[2016-11-03] MEDS ORDERED: Cefepime(*) 2 GM in NS 0.9% 50 ML* 50 ML IVPB SCH (20:00)
[2016-11-04] MEDS: Morphine INJ* 4 MG/ML 1 ML SYRINGE IV PRN ×2 (02:28→04:55)
--- NOTE | 2016-11-04 03:29 | CONS ---
CC: Jesse Dinh MD * PALLIATIVE CARE CONSULTATION: DATE OF CONSULT: 11/03/16 PRIMARY CARE PHYSICIAN: Jesse Dinh MD. REFERRING PHYSICIAN: Bria Rios NP. HOSPITAL COURSE: This is a 66-year-old female with a past medical history of widely metastatic breast cancer on chemotherapy who presented from the oncology office for confusion and increase in shortness of breath. The patient was recently admitted from 10/24/16 to 10/30/16 with refractory chest pain at the site of her chest tube. She has had issues with recurrent pleural effusions. This has since been removed. Her metastases include bony mets and as noted, her malignant pleural effusion. The patient was admitted with a fever and somnolence and an elevated troponin with the family discussing with Bria the trial period of IV fluids and antibiotics to see if she would improve. On my encounter, the , the 2 daughters and the patient's brother are at the bedside. The states she has been gradually declining since May, more significant decline since mid June and then over the past few days a significant decline. She has had minimal p.o. intake over the past 2 weeks. Last night, she became more confused and somnolent. She has had difficulty ambulating and the has been taking care of her 24x7. Her last chemo treatment was about 2-1/2 weeks ago. She is scheduled for this Tuesday, the , with another round of chemotherapy. The family states the patient has not really woken up or interacted with them since last evening when this all started. She was recently complaining of left chest pain, left leg pain and right hip pain, but has not complained recently of pain. On my encounter, the patient is somnolent, does not awake to verbal or gentle tactile stimulation. We discussed the MOLST as it was not present in the chart from her prior admission and the patient at that time on past admission had the capacity to make these decisions and she preferred to be DNR and DNI with comfort measures, trial of IV fluids and antibiotic use. This MOLST form was completed with the as the healthcare proxy. He did discuss that karo did come out to the home at one point in May to visit, but has not been enrolled in hospice yet. He states that their goals for her is to be comfortable. One of the daughters is a nurse who works at [employer] and the other daughter is from [place]. Otherwise unable to obtain review of systems due to patient's somnolence. PAST MEDICAL HISTORY: 1. History of breast cancer diagnosed in 1998, followed by Dr. Dinh, history now with bony mets, malignant pleural effusion status post chemotherapy, surgery and radiation. 2. Asthma. 3. Diabetes. 4. Hypercholesterolemia. 5. Pancytopenia secondary to chemotherapy. 6. Neuropathy. 7. Lymphedema. 8. History of lap cholecystectomy. 9. History of total hip arthroplasty on the right secondary to bony metastases. INPATIENT MEDICATIONS: 1. Tylenol 650 mg every 6 hours as needed for pain. 2. Lorazepam 0.5 mg every 4 hours as needed. 3. Levothyroxine 100 mcg daily. 4. Cefepime 2 g q.8 hours. 5. Morphine 4 mg IV q.2 hours. 6. Normal saline 50 cc an hour. 7. Zofran 4 mg every 4 hours as needed. ALLERGIES: ALCOHOL, CAPECITABINE, DOCETAXEL, ETHANOL, FLUOROURACIL, NICKEL, SORBITAN, CAMPHOR, CARBOXYMETHYLCELLULOSE, MENTHOL, METHYL SALICYLATE, POTASSIUM DICHROMATE, YEW BUSHES, SUNSCREEN, SURGICAL TAPE, DEODORANT, SHOE DYE. FAMILY HISTORY: The patient with a sister with breast cancer in her 40s, but is in remission and mother's cousin had a history of breast cancer. SOCIAL HISTORY: The patient is living at home with her of almost 41 years. He has been the primary kinesiology internship for her. No history of smoking, alcohol or illicit drug use. MOLST form filled out and completed with DNR and DNI comfort measures. REVIEW OF SYSTEMS: Unable to obtain due to the patient's altered mental status. PHYSICAL EXAM: Vital Signs: Temp is 98.2, pulse rate is 115, respiratory rate 16, oxygen saturation 98% on 2 L, blood pressure 103/52. General: The patient is somnolent, intermittently groaning with her and 2 daughters at the bedside. Head is normocephalic. Oropharynx, mucous membranes moist. Pupils are not examined. Neck is supple. Cardiac: Tachycardic with ectopic beats. Respiratory: Diminished breath sounds. No wheeze, rhonchi or rales. Abdomen: Some mild distension. Soft. Extremities: +2 pretibial edema. Neurologic: The patient is somnolent, unresponsive, unable to follow commands. DIAGNOSTIC STUDIES/LAB DATA: White count 13.3, hemoglobin 8.1, hematocrit 25, and platelets 19,000. Sodium 130, potassium 4.8, chloride 95, bicarbonate 22, BUN 38, creatinine 1.03. Troponin 0.53. Albumin is 1.8, prealbumin is less than 3. Chest x-ray shows diffuse increase in interstitial markings and therefore, suspect small left-sided hydropneumothorax, left basilar abnormalities. ASSESSMENT: This is a 66-year-old female with a past medical history of widely metastatic breast cancer who has had an acute in onset decline in her clinical status with somnolence, confusion, presenting with tachycardia, fever and an elevated troponin. The family is all agreeable to making the patient comfortable. The goal when Bria discussed with the family is the trial of IV fluids and antibiotics to see if she perks up and becomes more interactive. We discussed taking each day at a time. If the patient does not perk up, I would recommend discontinuing IV fluids and antibiotics and allowing for comfort care. I discussed with the family that I was concerned that she was not going to survive to discharge. I also discussed that if she does survive to discharge that I would be concerned about the patient would need 24-hour care at home as the was the primary sole caregiver for her and that discussing further options if she does go home with the family with hospice involvement. The family was all agreeable to this. I also added atropine as needed for secretions and started her on morphine oral concentrate 5 mg sublingual every 1 hour as needed. Thank you for this consultation. I will follow along with you. TIME SPENT: Greater than 90 minutes spent doing the consultation, more than half the time spent in direct patient contact. [id number]/[facility] #: [id number] ZOILA
[2016-11-04] MEDS ORDERED: Levothyroxine TAB* 100 MCG TAB PO SCH (06:00)
[2016-11-04] MEDS ORDERED: ceFAZolin 2 GM PREMIX(*) 2 GM/50 ML BAG IVPB SCH (06:00)
[2016-11-04 06:38] LABS: Hematocrit 23 % (35-47); Hemoglobin 7.2 g/dl (12.0-16.0); Mean Corpuscular HGB Conc 32 g/dl (31-36); Mean Corpuscular Hemoglobin 31 pg (27-31); Mean Corpuscular Volume 98 fL (80-97); Mean Platelet Volume 9 um3 (7.4-10.4); Red Blood Count 2.31 10^6/ul (4.0-5.4); Red Cell Distribution Width 20 % (10.5-15); White Blood Count 12.7 10^3/ul (3.5-10.8)
[2016-11-04 06:47] LABS: Add Diff/Slide Review? Slide Review Added; Comments Flag Yes
[2016-11-04 06:48] LABS: Albumin 1.7 g/dL (3.2-5.2); BUN/Creatinine Ratio 40.2 (8-20); Calcium 7.4 mg/dL (8.6-10.3); EGFR African American 57.1 (>60); EGFR Non-African American 44.4 (>60); Globulin 2.9 g/dL (2-4); Total Bilirubin 1.7 mg/dL (0.2-1.0); Total Protein 4.6 g/dL (6.4-8.9)
[2016-11-04] MEDS: Morphine ORAL CONCENTRATE* 5 MG/0.25 ML ORAL.SYRIN SL PRN ×4 (08:18→19:31)
--- NOTE | 2016-11-04 09:14 | PN ---
Progress Note - Progress Note Date of Service: 11/04/16 SOAP: Subjective: continued to deteriorate over night. now mostly unresponsive with no purposeful speech. +gurgling. appears comfortable however. fluids stopped Objective: Vital Signs Temp Pulse Resp BP Pulse Ox 98.2 F 115 12 103/52 94 11/03/16 15:03 11/03/16 15:03 11/04/16 08:18 11/03/16 15:03 11/04/16 02:30 lying flat, fairly comfortable appearing rhonchorous with wet breath sounds anasarcic Assessment: 66 yo F w end stage metastatic breast cancer. The family now appropriately interested in comfort measures only, which we will do here at the hospital as she will very likely pass in the next 24-72 hours. Plan: -CONTACT CLERK -start scop patch -stop all fluids/abx
[2016-11-04] MEDS ORDERED: Scopolamine 1.5 mg* PATCH TRANSDERM SCH (10:00)
--- NOTE | 2016-11-04 14:49 | PN ---
Progress Note - Progress Note Date of Service: 11/04/16 Note: Surgery Note: We were asked to see this patient well-known to our office for recent malignant Left pleural effusion with mechanical pleuradesis and chest tube placement and subsequent removal. Readmitted w/ SOB, elevated troponins, now on comfort care. Regarding any benefit from placement of another chest tube or thoracentesis, her recent imaging was reviewed and the case discussed w/ Dr. Pierson. There is no perceived benefit to any surgical intervention for palliation of her dyspnea.
[2016-11-05] MEDS: Morphine ORAL CONCENTRATE* 5 MG/0.25 ML ORAL.SYRIN SL PRN ×4 (03:25→15:53)
[2016-11-05] MEDS: Morphine INJ* 4 MG/ML 1 ML SYRINGE IV PRN ×3 (10:41→16:48)
[2016-11-05 11:57] VITALS: BP 98/51
--- NOTE | 2016-11-05 13:03 | PN ---
Progress Note - Progress Note Date of Service: 11/05/16 Note: Palliative care follow up: Patient appears comfortable. , daughters and patient's best friend are at the bedside. Feel that she has been well care for. Are not inquiring for more pain medications at this time. Patient does not sound rhonchorous or gurgling. Expect imminent passing over next 24-48 hours. Would not recommend transfer out of hospital.
[2016-11-07] MEDS ORDERED: Scopolomine PATCH Remove* 1 NOTE MISC PATCH OFF SCH (10:00)
== END 2016-11-05 18:46 | disposition expired | DRG 382 ==
LOC: ED 10:54 → MED 13:22
PROVIDERS: ADMIT Internal Medicine Hematology & Oncology; ATTEND Internal Medicine Hematology & Oncology
DX: C50.912 Malignant neoplasm of unspecified site of left female breast (principal); J91.0 Malignant pleural effusion; C78.7 Secondary malignant neoplasm of liver and intrahepatic bile duct; C79.51 Secondary malignant neoplasm of bone; G62.9 Polyneuropathy, unspecified; E11.9 Type 2 diabetes mellitus without complications; D53.9 Nutritional anemia, unspecified; J45.909 Unspecified asthma, uncomplicated; E78.00 Pure hypercholesterolemia, unspecified; Z98.51 Tubal ligation status; Z96.641 Presence of right artificial hip joint; Z83.3 Family history of diabetes mellitus; Z80.3 Family history of malignant neoplasm of breast; Z85.3 Personal history of malignant neoplasm of breast; M17.12 Unilateral primary osteoarthritis, left knee; Z88.8 Allergy status to other drugs, medicaments and biological substances; Z91.048 Other nonmedicinal substance allergy status; Z17.0 Estrogen receptor positive status [ER+]
CPT/HCPCS: 36415; 71010; 80053; 82550; 83605; 83880; 84134; 84484; 85025; 85730; 86140; 87040; 87077; 87150; 87186; 87205; 93005; 99223; 99232; 99233; A9270-GY; J0690; J0692; J1642; J2060; J2270; J2405